=== PATIENT | female | born 1965 | race African-American/Black ===

== ENCOUNTER → 2018-02-05 | Outpatient (CLI) | payer BC ==
[2018-02-05 16:01] LABS: ADD MAN DIFF? NO
[2018-02-05 16:12] LABS: BASO % 1 % (0-3); EOS # 0.2 x10^3/uL (0.0-0.7); EOS % 3 % (0-3); HEMATOCRIT 43.4 % (36.0-47.0); HEMOGLOBIN 14.4 g/dL (12.0-15.5); LYMPH # 3.1 x10^3/uL (1.0-4.8); LYMPH % 48 % (24-48); MEAN CORPUSCULAR HEMOGLOBIN 30 pg (25-35); MEAN CORPUSCULAR HGB CONC 33 g/dL (31-37); MEAN CORPUSCULAR VOLUME 90 fL (79-100); MONO # 0.9 x10^3/uL (0.0-1.1); MONO % 14 % (0-9); NEUT # 2.2 x10^3uL (1.8-7.7); NEUT % 35 % (31-73); PLATELET COUNT 176 x10^3/uL (140-400); RED BLOOD COUNT 4.84 x10^6/uL (3.50-5.40); RED CELL DISTRIBUTION WIDTH 15.1 % (11.5-14.5); WHITE BLOOD COUNT 6.4 x10^3/uL (4.0-11.0)
[2018-02-05 16:34] LABS: ALBUMIN/GLOBULIN RATIO 1.1 (1.0-1.7); ALK PHOS 67 U/L (46-116); ALT (SGPT) 44 U/L (14-59); ANION GAP 5 (6-14); AST (SGOT) 20 U/L (15-37); BLOOD UREA NITROGEN 17 mg/dL (7-20); BUN/CREATININE RATIO 12 (6-20); CALCIUM 9.3 mg/dL (8.5-10.1); CARBON DIOXIDE 33 mmol/L (21-32); CHLORIDE 108 mmol/L (98-107); CREATININE 1.4 mg/dL (0.6-1.0); GFR 47.2; GLUCOSE 63 mg/dL (70-99); POTASSIUM 3.6 mmol/L (3.5-5.1); SODIUM 146 mmol/L (136-145); TOTAL BILIRUBIN 0.8 mg/dL (0.2-1.0); TOTAL PROTEIN 7.7 g/dL (6.4-8.2)
[2018-02-06 02:15] LABS: MRSA BY PCR Negative (Negative)
== END | disposition home or self-care (01) ==
LOC: SURGPAT 13:48
DX: Z01.812 Encounter for preprocedural laboratory examination (principal); M51.16 Intervertebral disc disorders with radiculopathy, lumbar region; M48.061 Spinal stenosis, lumbar region without neurogenic claudication; M43.16 Spondylolisthesis, lumbar region
CPT/HCPCS: 36415; 80053; 85025; 87641

== ENCOUNTER 2018-02-15 07:07 | Observation (INO) | payer BC ==
[~2018-02-15 07:07] MED LIST: LIDOCAINE 1% PF 2 ML VIAL. ID; MORPHINE SULFATE 4 MG/ML DISP.SYRIN. IV; ONDANSETRON PF 4 MG/2 ML VIAL. IV; PROCHLORPERAZINE 10 MG/2 ML VIAL. IV; fentaNYL PF VIAL 100 MCG/2 ML VIAL IV
[2018-02-15] MEDS: IV RINGERS,LACTATED 1000ML 1,000 ML IV ×2 (07:48→12:56)
[2018-02-15] MEDS ORDERED: PROPOFOL 50 ML IV ×2 (08:15→08:21)
[2018-02-15] MEDS ORDERED: REMIFENTANIL 2 MG VIAL. IV (08:16)
[2018-02-15] MEDS ORDERED: GLYCOPYRROLATE 1 MG/5 ML VIAL. (08:16)
[2018-02-15] MEDS ORDERED: ROCURONIUM 50 MG/5 ML VIAL. (08:16)
[2018-02-15] MEDS ORDERED: DEXAMETHASONE SOD PHOS 20 MG/5 ML VIAL. (08:20)
[2018-02-15] MEDS ORDERED: PROPOFOL 20 ML IV (08:20)
[2018-02-15] MEDS ORDERED: DESFLURANE > 120 MINUTES IH (08:20)
[2018-02-15] MEDS ORDERED: ONDANSETRON PF 4 MG/2 ML VIAL. (08:21)
[2018-02-15] MEDS ORDERED: PHENYLEPHRINE 10 MG/ML VIAL. (08:21)
[2018-02-15] MEDS ORDERED: MIDAZOLAM HCL/PF 2 MG/2 ML VIAL. (08:24)
[2018-02-15] MEDS ORDERED: KETOROLAC 30 MG/ML INJ FOR OR. INJ (09:03)
[2018-02-15] MEDS: THROMBIN TOPICAL 20,000 UNIT SPRAY.SYRN KIT TP (09:22)
[2018-02-15] MEDS: BUPIVAC MPF-EPI 0.5%-1:200000 30 ML VIAL. INJ (09:22)
[2018-02-15] MEDS: BACITRACIN 50,000 UNIT in IV NORMAL SALINE 1000ML BAG 1,000 ML IRR (09:22)
[2018-02-15] MEDS: GELATIN SPONGE SIZE 100. (09:22)
[2018-02-15] MEDS: KETOROLAC 60 MG/2 ML INJ FOR OR. (09:22)
[2018-02-15] MEDS ORDERED: fentaNYL PF VIAL 100 MCG/2 ML VIAL IV (11:30)
[2018-02-15] MEDS ORDERED: diphenhydrAMINE HCL 25 MG CAPSULE PO (11:45)
[2018-02-15] MEDS ORDERED: MAG HYDROX/ALUMINUM HYD/SIMETH 30 ML ORAL.SUSP PO (11:45)
[2018-02-15] MEDS ORDERED: 0.9 % SODIUM CHLORIDE 10 ML DISP.SYRIN. IV (11:45)
[2018-02-15] MEDS ORDERED: ZOLPIDEM 5 MG TABLET. PO (11:45)
[2018-02-15] MEDS ORDERED: ONDANSETRON PF 4 MG/2 ML VIAL. IV (11:45)
[2018-02-15] MEDS ORDERED: CALCIUM CARBONATE 500 MG TAB.CHEW PO (11:45)
[2018-02-15] MEDS ORDERED: diphenhydrAMINE 50 MG/ML VIAL IV (11:45)
[2018-02-15] MEDS ORDERED: MAGNESIUM HYDROXIDE 2,400 MG/30 ML ORAL.SUSP. PO (12:00)
[2018-02-15] MEDS ORDERED: ceFAZolin 2GM PREMIX 2 GM/50 ML BAG IV (12:00)
[2018-02-15] MEDS ORDERED: fentaNYL PF VIAL 100 MCG/2 ML VIAL ×2 (12:29→12:52)
[2018-02-15] MEDS: fentaNYL PF VIAL 100 MCG/2 ML VIAL IV ×4 (12:33→16:18)
[2018-02-15] MEDS: METHOCARBAMOL 750 MG TABLET PO ×2 (14:00→21:02)
[2018-02-15] MEDS ORDERED: ALBUTEROL SULFATE 2.5 MG/3 ML NEBU. NEB (14:15)
[2018-02-15] MEDS: ALBUTEROL SULFATE 2.5 MG/3 ML NEBU. NEB ×2 (14:55→20:00)
[2018-02-15] MEDS: oxyCODONE/APAP 10/325 1 TAB TABLET PO ×2 (19:32→23:41)
[2018-02-15] MEDS: DOCUSATE SODIUM 100 MG CAPSULE. PO (21:03)
[2018-02-16] MEDS: ALBUTEROL SULFATE 2.5 MG/3 ML NEBU. NEB ×5 (00:03→15:21)
[2018-02-16] MEDS: POTASSIUM CL 20MEQ D5-0.45NACL 1,000 ML IV ×2 (00:51→01:28)
[2018-02-16] MEDS: ACETAMINOPHEN 325 MG TABLET. PO ×2 (05:29→11:10)
[2018-02-16] MEDS: DOCUSATE SODIUM 100 MG CAPSULE. PO (08:17)
[2018-02-16] MEDS: CYANOCOBALAMIN (VITAMIN B-12) 1,000 MCG TABLET. PO (08:17)
[2018-02-16] MEDS: CHOLECALCIFEROL (VITAMIN D3) 1,000 UNIT TABLET PO (08:17)
[2018-02-16] MEDS: METHOCARBAMOL 750 MG TABLET PO ×2 (08:17→14:54)
[2018-02-16] MEDS: oxyCODONE/APAP 10/325 1 TAB TABLET PO ×2 (08:17→14:53)
[2018-02-16] MEDS: CETIRIZINE HCL 10 MG TABLET. PO (08:17)
== END 2018-02-16 20:30 | disposition home or self-care (01) ==
LOC: SURG 07:07 → 4 SOUTHEST 11:31 → 4 NORTH 02-16 16:09
DX: M48.062 Spinal stenosis, lumbar region with neurogenic claudication (principal); J45.909 Unspecified asthma, uncomplicated; M54.17 Radiculopathy, lumbosacral region; M43.17 Spondylolisthesis, lumbosacral region; M71.38 Other bursal cyst, other site; D64.9 Anemia, unspecified; Z85.9 Personal history of malignant neoplasm, unspecified; Z87.01 Personal history of pneumonia (recurrent); Z91.040 Latex allergy status; Z79.899 Other long term (current) drug therapy
CPT/HCPCS: 63047; 76000; 88304; 88311; 94640; 94760; 96374; 97110-GP; 97116-GP; 97162-GP; 97530-GP; A7015; G0378; G0379; G8978-CJ-GP; G8979-CI-GP; G8980-CI-GP; J0690; J1100; J1885; J2250; J2405; J2704; J3010; J3490; J7030; J7613

== ENCOUNTER → 2018-09-25 | Outpatient (CLI) | payer BC ==
[~2018-09-25] MED LIST changes: +CETI10TA22 PO; +CHOL100013 PO; +CHOL2000 PO; +CYAN250012 PO; +DIPH25CA58 PO; +DOCU-109 PO; +ERGO500027 PO; +HYDR-2761 PO; +IOHEXOL 180 MG/ML 10 ML VIAL. IT ONE; +IOHEXOL 180 MG/ML 10 ML VIAL. ONE; -LIDOCAINE 1% PF 2 ML VIAL. ID; +LIDOCAINE WITH 8.4% SOD BICARB 3 ML DISP.SYRIN. INJ ONE; +LIDOCAINE WITH 8.4% SOD BICARB 3 ML DISP.SYRIN. ONE; +LOSA1TAB19 PO; +METH750T2 PO; -MORPHINE SULFATE 4 MG/ML DISP.SYRIN. IV; -ONDANSETRON PF 4 MG/2 ML VIAL. IV; +OXYC1TAB15 PO; +OXYC1TAB22 PO; +OXYC5TAB4 PO; -PROCHLORPERAZINE 10 MG/2 ML VIAL. IV; +VENTOLIN HFA18 GM INH; -fentaNYL PF VIAL 100 MCG/2 ML VIAL IV
[2018-09-25 15:25] VITALS: BP 126/75
[2018-09-25 15:35] VITALS: BP 123/74
--- NOTE | 2018-09-25 15:41 | NUR ---
Pt completed myelogram recovery in cv obs. Alert and oriented x 3, able to tolerate PO, will wait for ride to take her home. Reviewed DC instructions, no questions, pt escorted out per wheelchair. KLAUS RN
--- NOTE | 2018-09-25 15:54 | RAD ---
Lumbar myelogram, 09/25/2018: History: Low back pain following laminectomy Under local anesthesia, aseptic conditions and fluoroscopic guidance a lumbar puncture was performed at the mid L2 level utilizing a 25-gauge Sarah spinal needle. Good clear CSF flow was obtained following which 14 cc of Omnipaque 180 was injected into the thecal sac. The spinal needle was then removed and hemostasis obtained. Appropriate digital imaging was then performed. 2.6 minutes of fluoroscopy time was utilized. 15 fluoroscopic spot images were recorded. The patient experienced a mild vasovagal reaction during the procedure but quickly recovered. She was sent to CT in good condition. Following findings are delineated on the myelogram: 1. There are mild anterior and posterior extradural defects at L3-4. There is mild associated narrowing of the AP diameter of the thecal sac at this level. There is slight anterolisthesis at L3-4 in the upright position with flexion, estimated at 2-3 mm. 2. There is minimal anterolisthesis at L5-S1, estimated at 3 mm. This does not change significantly with upright flexion or extension. 3. There is symmetric opacification of the nerve root sleeves in the lower lumbar spine. CT lumbar spine-post myelogram, 09/25/2018: Multidetector CT imaging was performed following a myelogram with multiplanar reconstructions produced. The following findings are delineated: 1. No significant posterior disc bulge or protrusion is seen at L1-2 and L2-3. The central spinal canal and neural foramina are well maintained. 2. At L3-4 there is mild to moderate broad-based posterior disc bulging, most prominent laterally on both sides. There are bilateral pars defects at L3. This appearance may be due to surgical resection of the inferior facet joints at L3-4. Posterior spurring on the left is causing mild narrowing of the left side of the thecal sac just inferior to the disc level. At the disc level in the supine position for the CT imaging the thecal sac measures 10-11 mm at the midline. There is no evidence of spondylolisthesis in the supine position for the CT imaging. There is only mild inferior foraminal narrowing. 3. At L4-5 there is a laminectomy defect on the left with evidence of a partial facetectomy. There is mild posterior disc bulging and minimal spurring. The central spinal canal is well maintained. There is mild bilateral foraminal narrowing 4. At L5-S1 there is moderate degenerative change involving the facet joints bilaterally. There is thinning of the pars interarticularis on the right with probable spondylolysis. There is minimal associated anterolisthesis of L5 on S1 in the supine position. The central spinal canal and neural foramina are well maintained. IMPRESSION: 1. Moderate facet joint arthropathy at L5-S1 with thinning and probable spondylolysis of the right pars interarticularis, with minimal associated anterolisthesis at L5-S1. 2. Previous left laminectomy at L4-5. 3. Bilateral pars defects at L3 in a pattern suggesting previous partial facet joint resections. Correlation with the precise surgical history is suggested. There is only slight anterolisthesis at L3-4 in the upright position with flexion. PQRS Compliance Statement: One or more of the following individualized dose reduction techniques were utilized for this examination: 1. Automated exposure control 2. Adjustment of the mA and/or kV according to patient size 3. Use of iterative reconstruction technique
== END | disposition home or self-care (01) ==
LOC: RAD 13:42
PROVIDERS: ATTEND Neurological Surgery
DX: M51.16 Intervertebral disc disorders with radiculopathy, lumbar region (principal); M48.061 Spinal stenosis, lumbar region without neurogenic claudication; J45.909 Unspecified asthma, uncomplicated; I10 Essential (primary) hypertension; Z91.040 Latex allergy status; Z98.890 Other specified postprocedural states
CPT/HCPCS: 62304; 72132; Q9965; 72265

== ENCOUNTER → 2019-01-07 | Outpatient (CLI) | payer BC ==
[2018-09-25 15:35] VITALS: BP 123/74
[~2019-01-07] MED LIST changes: -IOHEXOL 180 MG/ML 10 ML VIAL. IT ONE; -IOHEXOL 180 MG/ML 10 ML VIAL. ONE; -LIDOCAINE WITH 8.4% SOD BICARB 3 ML DISP.SYRIN. INJ ONE; -LIDOCAINE WITH 8.4% SOD BICARB 3 ML DISP.SYRIN. ONE
--- NOTE | 2019-01-07 14:01 | EKG ---
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
[2019-01-07 16:34] LABS: BASO # 0.1 x10^3/uL (0.0-0.2); BASO % 1 % (0-3); EOS # 0.1 x10^3/uL (0.0-0.7); EOS % 3 % (0-3); HEMATOCRIT 42.7 % (36.0-47.0); HEMOGLOBIN 14.1 g/dL (12.0-15.5); LYMPH % 56 % (24-48); MEAN CORPUSCULAR HEMOGLOBIN 29 pg (25-35); MEAN CORPUSCULAR HGB CONC 33 g/dL (31-37); MEAN CORPUSCULAR VOLUME 89 fL (79-100); MONO # 0.4 x10^3/uL (0.0-1.1); MONO % 7 % (0-9); NEUT # 1.8 x10^3uL (1.8-7.7); NEUT % 33 % (31-73); PLATELET COUNT 175 x10^3/uL (140-400); RED CELL DISTRIBUTION WIDTH 15.8 % (11.5-14.5); WHITE BLOOD COUNT 5.3 x10^3/uL (4.0-11.0)
[2019-01-07 16:46] LABS: ALBUMIN/GLOBULIN RATIO 1.1 (1.0-1.7); CALCIUM 9.5 mg/dL (8.5-10.1); CREATININE 1.4 mg/dL (0.6-1.0); GFR 47.2; POTASSIUM 3.4 mmol/L (3.5-5.1); PROTHROMBIN TIME PATIENT 13.2 SEC (11.7-14.0); TOTAL BILIRUBIN 0.8 mg/dL (0.2-1.0); TOTAL PROTEIN 7.5 g/dL (6.4-8.2)
== END | disposition home or self-care (01) ==
LOC: SURGPAT 13:28
PROVIDERS: ATTEND Neurological Surgery
DX: Z01.818 Encounter for other preprocedural examination (principal); M43.16 Spondylolisthesis, lumbar region; M54.5 Low back pain
CPT/HCPCS: 36415; 80053; 85025; 85610; 85730; 87641; 93005

== ENCOUNTER 2019-01-14 08:18 | Inpatient (IN) | payer BC ==
[2019-01-14] VITALS (7 sets, daily range): BP systolic 94–133; BP diastolic 52–76
[~2019-01-14] VITALS: Ht 160 cm; Wt 80.3 kg
--- NOTE | 2019-01-14 07:07 | PREOP HP ---
DATE OF SERVICE: 01/14/2019. HISTORY OF PRESENT ILLNESS: The patient is a pleasant 54-year-old who in 01/2018 underwent lumbar microsurgery at L3-L4 and L4-L5. Since her surgery, her left leg pain has been much improved. Her current problem, however, is low back pain. This has been present since her surgery. She rates her pain as 5/10. She says when she is up and moving and standing, her back pain increases. On occasion, there is pain, which can radiate into the right hip. Sitting helps her. Lying down also helps her. She has had physical therapy since surgery 2-3 times per week, has not been beneficial. PAST MEDICAL HISTORY: Anemia, asthma, cancer, headaches or migraines and hives. PAST SURGICAL HISTORY: Carpal tunnel release on the right in 1979, cervical surgery for HNP in 1989, pneumonia in 2008, CSF leak and repair in 2008, ankle surgery in 2013, lumbar decompression at L3-L4, L4-L5 in 01/2018. 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 Exercises weekly. Denies substance abuse. Denies drug use. Drinks alcohol 1-2 times per month. Drinks soda and tea daily. ALLERGIES: LATEX. CURRENT MEDICATIONS: Diazepam, Benadryl, ketorolac, cyanocobalamin, gabapentin, cetirizine, albuterol, Biofreeze. REVIEW OF SYSTEMS: A 12-point review of systems was obtained and is noncontributory except for that mentioned above. PHYSICAL EXAMINATION: NEUROSURGERY EXAMINATION: GENERAL APPEARANCE: Alert, pleasant, no acute distress. HEAD: Normocephalic and atraumatic. SKIN: Warm and dry. Well-healed lumbar incision. MUSCULOSKELETAL: Paraspinal muscle bulk is normal in the lumbar region. Restricted range of motion of the lumbar spine, mild to moderate tenderness of the lower lumbar spine with palpation, normal range of motion of the lower extremities bilaterally. EXTREMITIES: No clubbing, cyanosis, or edema. NEUROLOGIC: Alert and oriented x 3, normal recent and remote memory, strength 5/5 in bilateral lower extremities, sensory is intact to light touch in bilateral lower extremities, reflexes are present and symmetrical in the bilateral lower extremities, negative straight leg raising bilaterally, normal gait. IMAGING: On a lumbar myelogram from 09/25/2018, there is a 3 mm anterolisthesis at L3-L4 in flexion. On the CT portion, bilateral pars defects at L3 are seen. In the supine position on the CT scan post-myelogram, the spondylolisthesis reduces to 0. ASSESSMENT/ PLAN: The patient has moderately severe low back pain and motion at L3-L4 on the flexion when compared to the supine position. I believe that L3-L4 is the source of her persistent chronic back pain, which is disabling for her. She has given this problem some time and tried to improve with physical therapy, which has not been of any benefit. My feeling at this point is she should undergo an instrumented fusion at L3-L4 to see if this would help her. I did discuss this with her in detail including the technique, risks, and expected postoperative course. She understands. She would like to go ahead. We will make the arrangements. BRUCE THOMPSON MD DR: ADITHYA/aniyah JOB#: [id number] / [id number] BON
[~2019-01-14 08:18] MED LIST changes: +BACITRACIN 50,000 UNIT in IV NORMAL SALINE 1000ML BAG 1,000 ML IRR ONE; +BUPIVAC MPF-EPI 0.5%-1:200000 30 ML VIAL. ONE; +GELATIN SPONGE SIZE 100. ONE; +HYDROmorphone 2 MG/ML VIAL IV PRN; +IV RINGERS,LACTATED 1000ML 1,000 ML IV SCH; +KETOROLAC 60 MG/2 ML INJ FOR OR. ONE; +LIDOCAINE 1% PF 2 ML VIAL. ID PRN; +ONDANSETRON PF 4 MG/2 ML VIAL. IV PRN; -OXYC1TAB15 PO; +PROCHLORPERAZINE 10 MG/2 ML VIAL. IV PRN; +THROMBIN TOPICAL 20,000 UNIT SPRAY.SYRN KIT TP ONE; +fentaNYL PF VIAL 100 MCG/2 ML VIAL IV PRN
[2019-01-14] MEDS ORDERED: PROPOFOL 100 ML IV ONE (09:08)
[2019-01-14] MEDS ORDERED: ePHEDrine PF IN SALINE 50 MG/10 ML SYRINGE. IV ONE (10:01)
[2019-01-14] MEDS ORDERED: ONDANSETRON PF 4 MG/2 ML VIAL. ONE (10:01)
[2019-01-14] MEDS ORDERED: PHENYLEPHRINE in 0.9% NACL PF 1 MG/10 ML SYRINGE. IV ONE (10:01)
[2019-01-14] MEDS ORDERED: DEXAMETHASONE SOD PHOS 20 MG/5 ML VIAL. ONE (10:01)
[2019-01-14] MEDS ORDERED: PROPOFOL 20 ML IV ONE (10:02)
[2019-01-14] MEDS ORDERED: SUCCINYLCHOLINE 200 MG/10 ML VIAL. ONE (10:02)
[2019-01-14] MEDS ORDERED: LIDOCAINE 2% PF 5 ML VIAL. ONE (10:03)
[2019-01-14] MEDS ORDERED: ROCURONIUM 50 MG/5 ML VIAL. ONE (10:04)
[2019-01-14] MEDS ORDERED: MIDAZOLAM HCL/PF 2 MG/2 ML VIAL. ONE (10:05)
[2019-01-14] MEDS ORDERED: fentaNYL PF VIAL 100 MCG/2 ML VIAL ONE (10:05)
[2019-01-14] MEDS ORDERED: REMIFENTANIL 2 MG VIAL. IV ONE (10:05)
[2019-01-14] MEDS ORDERED: DESFLURANE > 120 MINUTES IH ONE (10:11)
--- NOTE | 2019-01-14 10:41 | RAD ---
CT of the lumbar spine without contrast, 01/14/2019: History: Brain lab study, spondylolisthesis Noncontrast scans were obtained with multiplanar reconstructions produced. The data was transferred to the operating room to aid in the patient's stereotactically guided surgery. The following findings are delineated: 1. No significant posterior disc bulge or protrusion is identified at the L1-2 and L2-3 levels. 2. At L3-4 there is moderate broad-based posterior disc bulging which is most prominent laterally on both sides. There are bilateral pars defects at L3 which may be related to previous surgery, as described on the 09/25/2018 CTmyelogram. There is mild associated central spinal stenosis and bilateral foraminal narrowing. 3. At L4-5 there is a laminectomy defect on the left with evidence of a partial facetectomy. There is mild posterior disc bulging, more so on the left. There is mild posterior marginal spurring. The combination of findings is causing mild bilateral foraminal narrowing and borderline central spinal stenosis. 4. At L5-S1 there are degenerative changes involving the facet joints. There is thinning of the pars interarticularis on the right with probable spondylolysis. There is minimal anterolisthesis of L5 on S1, unchanged since the 09/25/2018 exam. PQRS Compliance Statement: One or more of the following individualized dose reduction techniques were utilized for this examination: 1. Automated exposure control 2. Adjustment of the mA and/or kV according to patient size 3. Use of iterative reconstruction technique
[2019-01-14] MEDS ORDERED: GLYCOPYRROLATE 1 MG/5 ML VIAL. ONE (13:29)
[2019-01-14] MEDS ORDERED: NEOSTIGMINE METHYLSULFATE 5 MG/5 ML SYRINGE. ONE (13:29)
[2019-01-14] MEDS ORDERED: REMIFENTANIL 1 MG VIAL. IV ONE (14:38)
[2019-01-14] MEDS ORDERED: FAMOTIDINE 20 MG/2 ML VIAL ONE (14:53)
[2019-01-14] MEDS ORDERED: NALOXONE 0.4 MG/ML VIAL. ONE (15:39)
[2019-01-14] MEDS ORDERED: fentaNYL PF VIAL 100 MCG/2 ML VIAL IV PRN (16:00)
[2019-01-14] MEDS ORDERED: ONDANSETRON PF 4 MG/2 ML VIAL. IV PRN (16:00)
[2019-01-14] MEDS ORDERED: diphenhydrAMINE HCL 25 MG CAPSULE PO PRN (16:00)
[2019-01-14] MEDS ORDERED: 0.9 % SODIUM CHLORIDE 10 ML DISP.SYRIN. IV PRN (16:00)
[2019-01-14] MEDS ORDERED: METHOCARBAMOL 750 MG TABLET PO PRN (16:00)
[2019-01-14] MEDS ORDERED: CALCIUM CARBONATE 500 MG TAB.CHEW PO PRN (16:00)
[2019-01-14] MEDS ORDERED: MAG HYDROX/ALUMINUM HYD/SIMETH 30 ML ORAL.SUSP PO PRN (16:00)
[2019-01-14] MEDS ORDERED: NON FORMULARY ITEM (Albuterol Sulfate (Ventolin Hfa Inhaler) 2 PUFF) INH SCH (16:00)
[2019-01-14] MEDS ORDERED: CETIRIZINE HCL 10 MG TABLET. PO PRN (16:00)
[2019-01-14] MEDS ORDERED: MAGNESIUM HYDROXIDE 2,400 MG/30 ML ORAL.SUSP. PO PRN (16:00)
[2019-01-14] MEDS ORDERED: ZOLPIDEM 5 MG TABLET. PO PRN (16:00)
[2019-01-14] MEDS ORDERED: NALOXONE 0.4 MG/ML VIAL. IV PRN (16:00)
[2019-01-14] MEDS ORDERED: oxyCODONE/APAP 5/325 1 TAB TABLET PO PRN (16:00)
[2019-01-14] MEDS ORDERED: ACETAMINOPHEN 325 MG TABLET. PO PRN (16:00)
[2019-01-14] MEDS: fentaNYL PF VIAL 100 MCG/2 ML VIAL IV PRN ×2 (16:04→16:16)
[2019-01-14] MEDS: MORPHINE SULFATE 2 MG/ML VIAL. IV PRN ×2 (16:20→16:30)
--- NOTE | 2019-01-14 17:10 | NUR ---
Admitted from PACU per bed, alert to name, drowsy falls to sleep immediately, lumbar dressing with shadowing noted on 2 of 3 dressings, states discomfort level 10/10, ice pack applied to lumbar area for comfort, bilateral KEKE hose & bilateral MARYANA in place, IVF infusing into right hand, RAC iv site flushed, family members at bedside, side rails up x3, call light within reach, bed alarm activated.
[2019-01-14] MEDS ORDERED: POTASSIUM CL 20MEQ D5-0.45NACL 1,000 ML IV SCH (18:00)
[2019-01-14] MEDS ORDERED: ALBUTEROL SULFATE 2.5 MG/3 ML NEBU. NEB SCH (20:00)
[2019-01-14] MEDS: DOCUSATE SODIUM 100 MG CAPSULE. PO SCH (20:35)
[2019-01-14] MEDS: ceFAZolin SODIUM IV Push 1 GM VIAL. IVP SCH (20:37)
[2019-01-14] MEDS: oxyCODONE/APAP 5/325 1 TAB TABLET PO PRN (20:40)
[2019-01-14] MEDS ORDERED: ceFAZolin SODIUM 1 GM in IV DEXTROSE 5% 50 ML IV SCH (22:00)
[2019-01-14] MEDS ORDERED: ALBUTEROL SULFATE 2.5 MG/3 ML NEBU. NEB PRN (22:45)
[2019-01-15] MEDS: oxyCODONE/APAP 5/325 1 TAB TABLET PO PRN ×2 (03:01→17:41)
[2019-01-15 03:03] VITALS: BP 134/71
[2019-01-15] MEDS: ceFAZolin SODIUM IV Push 1 GM VIAL. IVP SCH ×2 (05:12→11:59)
[2019-01-15 06:10] VITALS: BP 113/74
[2019-01-15] MEDS ORDERED: hydroCHLOROthiazide 12.5 MG CAPSULE PO SCH (09:00)
[2019-01-15] MEDS ORDERED: LOSARTAN POTASSIUM 50 MG TABLET. PO SCH (09:00)
[2019-01-15] MEDS ORDERED: CYANOCOBALAMIN (VITAMIN B-12) 1,000 MCG TABLET. PO SCH (09:00)
[2019-01-15 11:10] VITALS: BP 116/70
[2019-01-15] MEDS ORDERED: OXYC1TAB15 PO (13:05)
[2019-01-15] MEDS ORDERED: METH750T2 PO (13:05)
[2019-01-15] MEDS ORDERED: DOCU-109 PO (13:05)
--- NOTE | 2019-01-15 13:11 | DISCH ---
DISCHARGE INSTRUCTIONS Condition on Discharge Condition on Discharge: Stable Activity After Discharge Activity Instructions for Disc: Activity as tolerated, Avoid exertion Bathing Instructions: Shower-keep dressing dry Lifting Instructions after Dis: No pulling or pushing, Do not lift >10 pounds Exercise Instruction after Dis: Exercise per therapy, Progress as tolerated Driving Instructions after Dis: Do not drive, No driving for 2 weeks Weight Bearing Status after Di: As tolerated Diet after Discharge Diet after Discharge: Regular Additional Diet Restrictions: resume home diet Wound Incision Care Wound/Incision Care: Ice to area for comfort, May get incision wet Other wound/incision instructi: may remove dressing when dry then may shower, no soaking Contacting the DRJd after DC Call your doctor for: Concerns you may have Follow-Up Follow up with: Dr. Thompson's nurse in 2 weeks [phone] BRUCE THOMPSON MD Jan 15, 2019 13:11
[2019-01-15] MEDS: DOCUSATE SODIUM 100 MG CAPSULE. PO SCH (14:08)
[2019-01-15 15:02] VITALS: BP 107/58
[2019-01-15 18:17] VITALS: BP 110/60
--- NOTE | 2019-01-15 18:35 | NUR ---
Discharge instructions given with prescriptions. Answered questions and concerns. Verbalized understanding. Extra dressing supplies given. Waiting for ride home. Cont. monitor.
--- NOTE | 2019-01-15 19:46 | NUR ---
Discharged from hospital. Escorted by this RN via w/c. Wearing brace, ambulating slowly bur steadily. Discharge papers given by FRANCOISE Womack.
--- NOTE | 2019-01-16 18:06 | PATHOLOGY ---
[facility] Accession Number: [id number] . 01 Material submitted: . vertebral column - LUMBAR DECOMPRESSION . 01 Clinical history: . Low back pain, lumbar spondylolisthesis . 02 Diagnosis: Segments of fibrocartilaginous, adipose, and skeletal muscle tissue and minute segment of bone, lumbar decompression: - Focal degenerative changes of fibrocartilaginous tissue. 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 02 Comment: There is no evidence of an acute inflammatory process or malignancy. 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 02 Electronically signed: . Konrad Metzger MD, Pathologist NPI- [id number] . 01 Gross description: . The specimen is received in formalin, labeled "Harness, Radhika, lumbar decompression was "and consists of multiple fragments of yellow-delaney soft to rubbery tissue and bone measuring 2.5 x 2.5 x 0.5 cm in aggregate which are entirely submitted in A1 following decalcification. (SDY; 01/15/2019) SYU/SYU . 02 Pathologist provided ICD-10: M54.9, M43.16 . 02 CPT . 312177, 226016 Specimen Comment: A courtesy copy of this report has been sent to Specimen Comment: [phone], . Specimen Comment: Report sent to / DR MEDINA Specimen Comment: A duplicate report has been generated due to demographic updates. Performed at: 01 [facility] [address], [place], [place] [id number] MD Raul Collazo MD Phone: [phone] Performed at: 02 [facility] [address] [place], [place] [id number] MD Konrad Metzger MD Phone: [phone]
--- NOTE | 2019-01-18 20:16 | OP ---
DATE OF SURGERY: 01/14/2019 PREOPERATIVE DIAGNOSIS: Spondylolisthesis with motion, L3-L4. POSTOPERATIVE DIAGNOSIS: Spondylolisthesis with motion, L3-L4. OPERATION PERFORMED: Posterior instrumentation L3-L4, posterolateral fusion L3-L4 with autograft bone. The operation was done with EMG monitoring, SSEP monitoring, motor evoked potentials, fluoroscopy, microscopic dissection and BrainLAB guidance. SURGEON: Ugo Thompson M.D. PROGRAM DIRECTOR SCOUTING: Marva Robledo APRN. She assisted with the exposure, the placement of the pedicle screws. OPERATIVE INDICATIONS: The patient is a pleasant 53-year-old woman who last year underwent a laminectomy of L3-L4 and L4-L5. She developed problems with chronic back pain, which became more and more severe. On imaging studies, there was motion seen at L3-L4, which was 3 mm when she was standing and reduced to 0 when she was supine and I felt that this was the source of the pain she was experiencing. She was also noted to have bilateral pars defects at L3. I recommended instrumented fusion. I spoke with her about the surgery and risks. She understood and wished to go ahead. DESCRIPTION OF PROCEDURE: Following general endotracheal anesthesia, the patient was positioned prone on the Iain table. Lumbar region prepped and draped in standard fashion. KEKE hose and AV impulse boots were applied for DVT prophylaxis. Microscope was draped. Fluoroscopy was draped and brought into the field. Monitoring was established. Ancef 2 gram was given less than 1 hour prior to initiation of the surgery. Iliac posts were placed into the left iliac crest and the BrainLAB system was initialized. A midline incision was then made from L3-L4, dissected down through skin and subcutaneous tissue and I first reflected the paraspinal muscles to the left. I identified the pedicle and also the lateral pedicle and transverse processes of L3 and L4. I drilled into the posterior aspect of the pedicles of L3 and L4 and I passed a black ball followed by ball tip probe, followed by tap, followed by screw placement, all using stimulated EMG monitoring. During this time, I also aspirated 20 mL of bone marrow from the right iliac crest and I mixed this with allograft bone, which was then packed into the left lateral gutter as after I excoriated. I then moved to the right side in a similar fashion, drilled into the posterior aspect of the pedicles of L3 and L4. I placed pedicle screws in L3 and L4 and during this time excoriated the lateral facets and transverse processes and packed allograft bone into the right lateral gutter. The rods were placed, nuts were applied and the system was torqued. I then irrigated copiously with antibiotic solution. Films looked excellent. I closed the wound in layers with absorbable suture with frequent irrigation and I closed the skin with a 4-0 subcuticular stitch. The operation went very well. The patient then awakened uneventfully and taken to recovery room in normal strength in her lower extremities. I was quite pleased with the surgery. UGO THOMPSON MD DR: ADITHYA/aniyah JOB#: [id number] / [id number] BON
--- NOTE | 2019-01-23 20:49 | DS ---
DATE OF DISCHARGE: 01/15/2019 DISCHARGE DIAGNOSES: Spondylolisthesis with motion, L3-L4. OPERATION PERFORMED: Posterior instrumentation L3-L4, posterolateral fusion L3-L4 with autograft bone and allograft bone. HISTORY OF PRESENT ILLNESS: The patient is a pleasant 54-year-old woman who last year underwent laminectomy at L3-L4 and L4-L5. She developed problems with chronic back pain, which became more and more severe. On imaging studies, there was motion seen at L3-L4 which was 3 mm when she was standing and reduced to 0 when she was supine. She also had a bilateral pars defect at L3. I recommended instrumented fusion. She understood the surgery and the risks, she wished to go ahead. HOSPITAL COURSE: She was admitted to the floor postoperatively where she did well. She was up ambulating in the room and in the halls. Physical therapy was initiated and instruction was given to her regarding her activities. Her pain is well controlled and she is in good condition to discharge home. DISCHARGE MEDICATIONS: She will resume her medications per the MRAD. DISCHARGE INSTRUCTIONS: She was instructed regarding incision care, activity restrictions and expectations for the next several weeks. She will follow up in the office in 2 weeks. She understands to call with any questions or concerns. BRUCE THOMPSON MD DR: LUCIEN/aniyah JOB#: [id number] / [id number]
== END 2019-01-15 19:45 | disposition home or self-care (01) | DRG 460 ==
LOC: OPSVCIP 08:18 → 4 SOUTHEST 17:10
PROVIDERS: ADMIT Neurological Surgery; ATTEND Neurological Surgery
PROC: 4A11X4G Monitoring of Peripheral Nervous Electrical Activity, Intraoperative, External Approach (ICD-10-PCS; 2019-01-14)
PROC: 07DR3ZZ Extraction of Iliac Bone Marrow, Percutaneous Approach (ICD-10-PCS; 2019-01-14)
PROC: 0SG0071 Fusion of Lumbar Vertebral Joint with Autologous Tissue Substitute, Posterior Approach, Posterior Column, Open Approach (ICD-10-PCS; principal; 2019-01-14 10:30)
DX: M43.16 Spondylolisthesis, lumbar region (principal); J45.909 Unspecified asthma, uncomplicated; G89.29 Other chronic pain; G43.909 Migraine, unspecified, not intractable, without status migrainosus; Z91.040 Latex allergy status; Z79.899 Other long term (current) drug therapy
CPT/HCPCS: 36415; 72131; 76000; 86850; 86900; 86901; 88304; 88311; 94640; A4314; A7015; C1713; J0171; J0330; J0690; J0696; J0780; J1100; J1170; J1885; J2001; J2250; J2270; J2310; J2370; J2405; J2704; J2710; J3010; J3490; J7030; J7120; J7613; 97110; 97116; 97530

== ENCOUNTER → 2019-04-03 | Outpatient (CLI) | payer BC ==
[~2019-04-03] MED LIST changes: -BACITRACIN 50,000 UNIT in IV NORMAL SALINE 1000ML BAG 1,000 ML IRR ONE; -BUPIVAC MPF-EPI 0.5%-1:200000 30 ML VIAL. ONE; -GELATIN SPONGE SIZE 100. ONE; -HYDROmorphone 2 MG/ML VIAL IV PRN; -IV RINGERS,LACTATED 1000ML 1,000 ML IV SCH; -KETOROLAC 60 MG/2 ML INJ FOR OR. ONE; -LIDOCAINE 1% PF 2 ML VIAL. ID PRN; -ONDANSETRON PF 4 MG/2 ML VIAL. IV PRN; +OXYC1TAB15 PO; -PROCHLORPERAZINE 10 MG/2 ML VIAL. IV PRN; -THROMBIN TOPICAL 20,000 UNIT SPRAY.SYRN KIT TP ONE; -fentaNYL PF VIAL 100 MCG/2 ML VIAL IV PRN
--- NOTE | 2019-04-03 11:21 | RAD ---
Indication: Status post lumbar fusion TECHNIQUE: 2 views of the lumbar spine COMPARISON: None FINDINGS: There are 5 lumbar type vertebral bodies. Status post posterior fusion at L3-L4 with grade 1 anterolisthesis of L3 over L4. No compression deformities. No significant evidence of degenerative disc disease. SI joints within normal limits. IMPRESSION: Status post posterior fusion at L3-L4 with grade 1 anterolisthesis of L3 over L4. Electronically signed by: Srikanth Hamm DO (04/03/2019 11:18 AM) [facility]
== END | disposition home or self-care (01) ==
LOC: RAD 10:16
PROVIDERS: ATTEND Neurological Surgery
DX: M43.16 Spondylolisthesis, lumbar region (principal); Z98.1 Arthrodesis status
CPT/HCPCS: 72100

== ENCOUNTER → 2019-07-09 | Outpatient (CLI) | payer BC ==
--- NOTE | 2019-07-09 15:26 | KCIC ---
EXAM: Lumbar spine CT without contrast. HISTORY: Pain. TECHNIQUE: Computed tomographic images of the lumbar spine were obtained without contrast. Multiplanar reformatting was performed.. *One or more of the following individualized dose reduction techniques were utilized for this examination: 1. Automated exposure control. 2. Adjustment of the mA and/or kV according to patient size. 3. Use of iterative reconstruction technique. COMPARISON: 01/14/2019 FINDINGS: There is instrumented posterior spinal fusion and partial laminectomy decompression at L3-L4. The instrumentation is in expected position. There is grade 1 anterolisthesis this level, measuring 5 mm. There is also grade 1 anterolisthesis of L5 on S1, measuring 5 mm and grade 1 anterolisthesis of L4 and L5, measuring 2 mm. There is a right pars interarticularis defect at L5-S1. There is mild lumbar scoliosis. There is no suspicious lytic sclerotic osseous lesion. There is a minimal endplate remodeling at multiple levels. At L1-L2, there is minimal bilateral facet arthropathy. There is no stenosis. At L2-L3, there is a mild disc bulge. There is mild bilateral facet arthropathy. There is no stenosis. At L3-L4, there is a mild disc bulge. There is instrumented fusion with partial laminectomy decompression. There is grade 1 anterolisthesis. There is mild bilateral foraminal stenosis. There is mild central canal stenosis. At L4-L5, there is a suspected broad-based left foraminal to extra foraminal disc protrusion superimposed on a disc bulge and endplate remodeling. There is moderate right facet arthropathy. There is mild left and minimal right foraminal stenosis. At L5-S1, there is a mild disc bulge. There is grade 1 anterolisthesis with a right pars defect. There is mild right and moderate left facet arthropathy. There is mild left foraminal stenosis. IMPRESSION: 1. Instrumented fusion at L4-L5. 2. Degenerative change throughout the lumbar spine, described in detail above. This is associated with mild bilateral foraminal and central canal stenosis at L3-L4, minimal right and mild left foraminal stenosis at L4-L5 and mild left foraminal stenosis at L5-S1. 3. Grade 1 anterolisthesis with associated right pars defect at L5-S1. There is also grade 1 anterolisthesis of L3 on L4 and L4 and L5. Electronically signed by: Klaudia Ambrocio MD (07/09/2019 3:23 PM) [place] [id number]
== END | disposition home or self-care (01) ==
LOC: KCIC CT 11:01
PROVIDERS: ATTEND Neurological Surgery
DX: M47.816 Spondylosis without myelopathy or radiculopathy, lumbar region (principal); M48.07 Spinal stenosis, lumbosacral region; M43.17 Spondylolisthesis, lumbosacral region; M41.86 Other forms of scoliosis, lumbar region; M46.86 Other specified inflammatory spondylopathies, lumbar region; M51.27 Other intervertebral disc displacement, lumbosacral region; Z98.1 Arthrodesis status
CPT/HCPCS: 72131

== ENCOUNTER → 2019-08-02 | Outpatient (CLI) | payer BC ==
[~2019-08-02] MED LIST changes: +CETI10TA16 PO; +CYCL5TAB PO; +GADOTERATE 7.5 MMOL/15ML VIAL. IVP ONE
--- NOTE | 2019-08-02 16:40 | KCIC ---
MRI Lumbar Spine without contrast History: Chronic low back pain with previous surgeries Technique: Multiplanar, multi sequential noncontrast MR imaging was performed of the lumbar spine. Comparison: 07/09/2019 CT exam lumbar spine Findings: There is again posterolateral fusion hardware with bilateral pedicle screws at what is considered L3-4. There is again grade 1 anterior spondylolisthesis at L3-4 and L5-S1, negligible anterior spondylolisthesis L4-5. Conus terminates at L1-L2. There is again mild to moderate L5-S1 degenerative disc disease and minimally L3-4 and L4-5. There is no significant marrow edema. L1-L2: Spinal canal and neural foramina are adequate. L2-L3: Spinal canal and neural foramina are adequate L3-L4: There are again laminectomy defects. There is mild partial uncovering of the posterior aspect of the disc due to spondylolisthesis. Spinal canal is overall adequate. There is again minimal narrowing on the right neural foramen in part from facet, left neural foramen overall adequate. L4-L5: There is again left laminectomy defect. Spinal canal is adequate. There is facet degenerative change. There is very mild narrowing of the inferior left neural foramen by disc osteophyte complex. Right neural foramen is overall adequate. L5-S1: There is facet hypertrophic change greater on the left. Spinal canal and neural foramina are adequate. There is right L5 spondylolysis better seen on CT. Impression: 1. There is again posterolateral fusion hardware at what is considered L3-4. There is mild grade 1 anterior spondylolisthesis L3-4, L4-5 and L5-S1. 2. There is no significant lumbar spinal stenosis. There is very mild neural foramina compromise as stated on the right at L3-4 and on the left at L4-5. 3. There is [id number] degenerative disc disease at L5-S1, minimally L3-4 and L4-5. Electronically signed by: Balwinder Reveles MD (08/02/2019 4:38 PM) [id number]
--- NOTE | 2019-08-02 18:22 | KCIC ---
Examination: LUMBAR SPINE FLEX/EXTI ONLY History: Chronic back pain Comparison/Correlation: 07/09/2019 CT lumbar spine without contrast, 04/03/2019 lumbar spine 2 view exam Findings: Flexion and extension imaging of the lumbar spine was performed. Posterior lumbar spine fusion at the L3-4 level is present. Minimal anterolisthesis of L3 on L4 and L4 over L5 is noted on flexion and extension imaging without significant difference. Mild anterolisthesis of L5 in relation to S1 of less than grade 1 extent is similar on flexion and extension imaging. This space narrowing at L3-4 is mild. Moderate L4-5 disc space narrowing is present. Vertebral body heights are adequate. No fracture or bone destruction. Impression: Anterolisthesis at L3-4, L4-5, and L5-S1. Anterolisthesis is slightly less on flexion imaging at L5-S1. Electronically signed by: Masoud Gamboa MD (08/02/2019 6:19 PM) [facility]
== END | disposition home or self-care (01) ==
LOC: KCIC MRI 12:50
PROVIDERS: ATTEND Neurological Surgery
DX: S32.00 Fracture of unspecified lumbar vertebra (principal); M43.16 Spondylolisthesis, lumbar region; M51.16 Intervertebral disc disorders with radiculopathy, lumbar region; M53.3 Sacrococcygeal disorders, not elsewhere classified; M47.26 Other spondylosis with radiculopathy, lumbar region; M47.818 Spondylosis without myelopathy or radiculopathy, sacral and sacrococcygeal region; M89.38 Hypertrophy of bone, other site; M48.061 Spinal stenosis, lumbar region without neurogenic claudication; M25.78 Osteophyte, vertebrae; Z98.1 Arthrodesis status; X58.XXXD Exposure to other specified factors, subsequent encounter
CPT/HCPCS: 72100; 72158; A9575

== ENCOUNTER → 2019-08-26 | Outpatient (CLI) | payer BC ==
[~2019-08-26] MED LIST changes: -GADOTERATE 7.5 MMOL/15ML VIAL. IVP ONE
[2019-08-26 15:31] LABS: BASO # 0.1 x10^3/uL (0.0-0.2); BASO % 1 % (0-3); EOS # 0.2 x10^3/uL (0.0-0.7); EOS % 3 % (0-3); HEMATOCRIT 43.8 % (36.0-47.0); HEMOGLOBIN 14.6 g/dL (12.0-15.5); LYMPH # 2.6 x10^3/uL (1.0-4.8); LYMPH % 35 % (24-48); MEAN CORPUSCULAR HEMOGLOBIN 30 pg (25-35); MEAN CORPUSCULAR HGB CONC 33 g/dL (31-37); MEAN CORPUSCULAR VOLUME 89 fL (79-100); MONO # 0.7 x10^3/uL (0.0-1.1); MONO % 10 % (0-9); NEUT # 3.7 x10^3/uL (1.8-7.7); NEUT % 51 % (31-73); PLATELET COUNT 181 x10^3/uL (140-400); RED BLOOD COUNT 4.93 x10^6/uL (3.50-5.40); RED CELL DISTRIBUTION WIDTH 15.3 % (11.5-14.5); WHITE BLOOD COUNT 7.2 x10^3/uL (4.0-11.0)
[2019-08-26 15:42] LABS: PROTHROMBIN TIME PATIENT 12.8 SEC (11.7-14.0)
[2019-08-26 16:19] LABS: ALBUMIN 3.7 g/dL (3.4-5.0); ALBUMIN/GLOBULIN RATIO 0.9 (1.0-1.7); CALCIUM 9.3 mg/dL (8.5-10.1); CREATININE 1.5 mg/dL (0.6-1.0); GFR 43.5; POTASSIUM 3.6 mmol/L (3.5-5.1); TOTAL BILIRUBIN 0.6 mg/dL (0.2-1.0); TOTAL PROTEIN 7.9 g/dL (6.4-8.2)
== END | disposition home or self-care (01) ==
LOC: SURGPAT 14:48
PROVIDERS: ATTEND Neurological Surgery
DX: Z01.818 Encounter for other preprocedural examination (principal); M54.5 Low back pain; M43.10 Spondylolisthesis, site unspecified
CPT/HCPCS: 36415; 80053; 85025; 85610; 85730; 87641

== ENCOUNTER 2019-09-02 06:12 | Inpatient (IN) | payer BC ==
--- NOTE | 2019-08-30 13:37 | HP ---
ADMIT DATE: DICTATED BY: Alejandro Will RN DATE OF SURGERY: 09/02/2019. HISTORY OF PRESENT ILLNESS: The patient is a pleasant 54-year-old who complains of lower back and groin pain as well as pain in her buttocks, posterior lateral thighs and legs. She has had a previous fusion with me. At this point, we are discussing augmenting her fusion with re-instrumentation. She has always had a small spondylolisthesis at L4-L5 and L5-S1, but there were never motion of those levels. On flexion and extension films done prior to her last visit in the office, she was moving significantly at L5-S1 on flexion and extension images. This was not the case prior to her previous surgery. She is noticing increasing lower back pain along with pain, which can radiate into both inguinal regions in her buttocks and posterior lateral thighs and legs. Most of the pain is in her back and hips. Twisting increases her pain and increasing activities increase her pain. Sitting helps her to a degree, although if she sits for any length of time, her back does become stiff and sore. PAST MEDICAL HISTORY: Anemia, asthma, cancer, headaches or migraines, hives. PAST SURGICAL HISTORY: CTR, right in 1979; HNP cervical surgery in 1989; pneumonia in 2008; CSF leak with repair in 2008; ankle surgery in 2013; lumbar decompression L3-L4, L4-L5 in 01/2018; lumbar fusion L3-L4 in 12/2018. FAMILY HISTORY: None documented. 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 Exercises weekly. Denies substance abuse. Denies tobacco use. Drinks alcohol 1-2 times per month. Drinks soda and tea daily. ALLERGIES: TO LATEX. CURRENT MEDICATIONS: Cyclobenzaprine, Benadryl, ketorolac, cyanocobalamin, gabapentin, cetirizine, albuterol, Biofreeze, Flexeril, Percocet. REVIEW OF SYSTEMS: A 12-point review of systems was obtained and is noncontributory except for that mentioned above. PHYSICAL EXAMINATION: NEUROSURGERY EXAMINATION: GENERAL APPEARANCE: Alert, pleasant, in no acute distress. HEAD: Normocephalic and atraumatic. SKIN: Warm and dry, well-healed lumbar incision. MUSCULOSKELETAL: Lumbar paraspinal muscle bulk is normal, restricted range of motion of the lumbar spine, market tenderness of the lower lumbar spine with palpation, normal range of motion of the lower extremities bilaterally. EXTREMITIES: No clubbing, cyanosis or edema. NEUROLOGIC: Alert and oriented x 3, normal recent and remote memory, strength 5/5 in bilateral lower extremities, sensory was intact to light touch in the lower extremities bilaterally, reflexes are present and symmetric in bilateral lower extremities, negative straight leg raising bilaterally, normal gait. IMAGING: Reviewed. I reviewed a lumbar flexion and extension images which are described above. On these, there is significant motion at L5-S1. On her previous images, there is a clear nonunion seen at L3-L4. ASSESSMENT: 1. 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 2. Low back pain. 3. Spondylolisthesis, lumbosacral region. 4. Spondylolisthesis, lumbar region. PLAN: She will require removal of hardware at L3-L4 as well as posterior instrumentation L3 through sacrum. This will be combined with posterolateral fusion. I did discuss this with her including the risks and expected postoperative course. She understands. She would like to go ahead. We will make the arrangements. BRUCE THOMPSON MD DR: ADITHYA/aniyah JOB#: [id number] / [id number]
[2019-09-02] VITALS (8 sets, daily range): BP systolic 77–103; BP diastolic 33–60
[~2019-09-02] VITALS: Ht 160 cm; Wt 87.5 kg
[~2019-09-02 06:12] MED LIST changes: +BACITRACIN 50,000 UNIT in IV NORMAL SALINE 1000ML BAG 1,000 ML IRR ONE
[2019-09-02] MEDS ORDERED: MORPHINE SULFATE 2 MG/ML VIAL. IV PRN (07:00)
[2019-09-02] MEDS ORDERED: PROCHLORPERAZINE 10 MG/2 ML VIAL. IV PRN (07:00)
[2019-09-02] MEDS ORDERED: fentaNYL PF VIAL 100 MCG/2 ML VIAL IV PRN ×2 (07:00)
[2019-09-02] MEDS ORDERED: ONDANSETRON PF 4 MG/2 ML VIAL. IV PRN (07:00)
[2019-09-02] MEDS ORDERED: HYDROmorphone 2 MG/ML VIAL IV PRN (07:00)
[2019-09-02] MEDS ORDERED: IV RINGERS,LACTATED 1000ML 1,000 ML IV SCH (07:00)
[2019-09-02] MEDS ORDERED: LIDOCAINE 1% PF 2 ML VIAL. ID PRN (07:00)
[2019-09-02] MEDS ORDERED: KETOROLAC 60 MG/2 ML VIAL. ONE (07:18)
[2019-09-02] MEDS ORDERED: GELATIN SPONGE SIZE 100. ONE (07:18)
[2019-09-02] MEDS ORDERED: THROMBIN TOPICAL 20,000 UNIT SPRAY.SYRN KIT TP ONE (07:18)
[2019-09-02] MEDS ORDERED: PROPOFOL 100 ML IV ONE (07:55)
[2019-09-02] MEDS ORDERED: BUPIVACAINE-EPI 0.5%-1:200000 MPF 30 ML VIAL. INJ ONE (08:00)
[2019-09-02] MEDS ORDERED: REMIFENTANIL 2 MG VIAL. IV ONE (08:06)
[2019-09-02] MEDS ORDERED: DESFLURANE > 120 MINUTES IH ONE (08:06)
[2019-09-02] MEDS ORDERED: MIDAZOLAM HCL/PF 2 MG/2 ML VIAL. ONE (08:06)
[2019-09-02] MEDS ORDERED: fentaNYL PF VIAL 100 MCG/2 ML VIAL ONE (08:06)
[2019-09-02] MEDS ORDERED: ONDANSETRON PF 4 MG/2 ML VIAL. ONE (08:07)
[2019-09-02] MEDS ORDERED: DEXAMETHASONE SOD PHOS 20 MG/5 ML VIAL. ONE (08:07)
[2019-09-02] MEDS ORDERED: ROCURONIUM 50 MG/5 ML VIAL. ONE (08:07)
[2019-09-02] MEDS ORDERED: PHENYLEPHRINE 10 MG/ML VIAL. ONE ×2 (08:07→12:33)
[2019-09-02] MEDS ORDERED: GLYCOPYRROLATE 1 MG/5 ML VIAL. ONE (10:18)
--- NOTE | 2019-09-02 10:35 | RAD ---
CT study of the lumbar spine without contrast Clinical indications: Low back pain. COMPARISON: CT study lumbar spine dated July 09, 2019 and MRI study lumbar spine dated August 02, 2019. TECHNIQUE: Noncontrast helical CT scanning of the lumbar spine was performed. Multiplanar 2-D reconstructions were generated. PQRS compliance Statement One or more of the following individualized dose reduction techniques were utilized for this study: 1. Automated exposure control 2. Adjustment of the mA and/or kV according to patient size 3. Use of iterative reconstruction technique FINDINGS: There is a grade 1 anterolisthesis of L3-4. Bilateral transpedicular screws are seen at L3 and L4 connected by 2 vertical metallic stabilizer bars. Alignment is stable. Position of surgical hardware is stable. No lytic process or lucency or discitis is seen. Bilateral pars defects are seen. This is unchanged. There is little overall floor of the thickness of L5. Grade 1 anterolisthesis of L5-S1 is seen. This is stable. No compression fracture or fracture of the transverse processes is evident. Mild dextroscoliosis is seen. T12-L1: No focal disc protrusion or spinal canal stenosis or neural foraminal narrowing is seen. L1-L2: No focal disc treated or spinal canal stenosis or neural foraminal narrowing is seen. L2-L3: No focal disc protrusion or spinal canal stenosis or neural foraminal narrowing is seen. L3-L4: Grade 1 anterolisthesis is seen. Diffuse disc protrusion is seen. There is streaking artifact throughout the lumbar spinal canal at this level related to the metallic surgical hardware. There is ligamentum flavum hypertrophy along with facet arthropathy. These findings combine to form a moderate spinal canal stenosis. This is unchanged. Mild bilateral neural foramina narrowing is seen bilaterally. L4-L5: There is a mild diffuse disc protrusion which is more prominent within the left neural foramen. There is moderate narrowing of left neural foramen result. Mild narrowing of the right neural foramen is seen. Laminectomy defect is present on the left side. Therefore, no significant spinal canal stenosis is seen. L5-S1: Grade 1 anterolisthesis is seen. There is a mild diffuse disc protrusion. There is mild narrowing of the left neural foramen. The right neural foramen is unremarkable. No significant spinal canal stenosis is seen. IMPRESSION: Stable study. No new compression fracture or discitis is seen. Electronically signed by: Javier Durham MD (09/02/2019 10:32 AM) [facility]
[2019-09-02] MEDS ORDERED: VASOPRESSIN 20 UNIT/ML VIAL. ONE (12:06)
[2019-09-02] MEDS ORDERED: ePHEDrine PF IN SALINE 50 MG/10 ML SYRINGE. IV ONE (12:55)
[2019-09-02] MEDS ORDERED: CLINDAMYCIN 900MG PREMIX 50 ML IV ONE (13:00)
[2019-09-02] MEDS ORDERED: REMIFENTANIL 1 MG VIAL. IV ONE (13:42)
[2019-09-02] MEDS ORDERED: CETIRIZINE HCL 10 MG TABLET. PO PRN (16:00)
[2019-09-02] MEDS ORDERED: CALCIUM CARBONATE 500 MG TAB.CHEW PO PRN (16:00)
[2019-09-02] MEDS ORDERED: diphenhydrAMINE HCL 25 MG CAPSULE PO PRN (16:00)
[2019-09-02] MEDS ORDERED: NALOXONE 0.4 MG/ML VIAL. IV PRN (16:00)
[2019-09-02] MEDS ORDERED: ACETAMINOPHEN 325 MG TABLET. PO PRN (16:00)
[2019-09-02] MEDS ORDERED: MAG HYDROX/ALUMINUM HYD/SIMETH 30 ML ORAL.SUSP PO PRN (16:00)
[2019-09-02] MEDS ORDERED: 0.9 % SODIUM CHLORIDE 10 ML DISP.SYRIN. IV PRN (16:00)
[2019-09-02] MEDS ORDERED: MAGNESIUM HYDROXIDE 2,400 MG/30 ML ORAL.SUSP. PO PRN (16:00)
[2019-09-02] MEDS ORDERED: ZOLPIDEM 5 MG TABLET. PO PRN (16:00)
[2019-09-02] MEDS ORDERED: NON FORMULARY ITEM (Albuterol Sulfate (Ventolin Hfa Inhaler) 2 PUFF) INH SCH (16:00)
[2019-09-02] MEDS ORDERED: CYCLOBENZAPRINE 10 MG TABLET. PO PRN (16:00)
[2019-09-02] MEDS ORDERED: ONDANSETRON PF 4 MG/2 ML VIAL. IVP PRN (16:00)
[2019-09-02] MEDS ORDERED: oxyCODONE/APAP 5/325 1 TAB TABLET PO PRN (16:00)
[2019-09-02] MEDS: fentaNYL PF VIAL 100 MCG/2 ML VIAL IVP PRN (17:23)
[2019-09-02] MEDS: POTASSIUM CL 20MEQ D5-0.45NACL 1,000 ML IV SCH (17:26)
[2019-09-02] MEDS: ALBUTEROL SULFATE 2.5 MG/3 ML NEBU. NEB SCH ×2 (17:56→22:00)
[2019-09-02] MEDS: oxyCODONE/APAP 5/325 1 TAB TABLET PO PRN (20:00)
[2019-09-02] MEDS: DOCUSATE SODIUM 100 MG CAPSULE. PO SCH (21:34)
[2019-09-02] MEDS: ceFAZolin SODIUM IV Push 1 GM VIAL. IVP SCH (21:39)
[2019-09-03] MEDS: oxyCODONE/APAP 5/325 1 TAB TABLET PO PRN ×5 (01:34→23:43)
[2019-09-03 03:00] VITALS: BP 99/44
[2019-09-03] MEDS: POTASSIUM CL 20MEQ D5-0.45NACL 1,000 ML IV SCH (05:38)
[2019-09-03] MEDS: ceFAZolin SODIUM IV Push 1 GM VIAL. IVP SCH ×2 (05:38→13:36)
[2019-09-03 07:00] VITALS: BP 91/46
[2019-09-03] MEDS: ALBUTEROL SULFATE 2.5 MG/3 ML NEBU. NEB SCH ×5 (07:22→22:00)
[2019-09-03] MEDS: CYANOCOBALAMIN (VITAMIN B-12) 1,000 MCG TABLET. PO SCH (08:14)
[2019-09-03] MEDS: DOCUSATE SODIUM 100 MG CAPSULE. PO SCH ×2 (08:14→21:10)
[2019-09-03] MEDS: LOSARTAN POTASSIUM 50 MG TABLET. PO SCH (08:14)
[2019-09-03 11:38] VITALS: BP 103/55
--- NOTE | 2019-09-03 11:38 | PDOC ---
PROGRESS NOTES Subjective Subjective pod #1 s/p Instrumented fusion L5- S1 incisional pain 8/10 at worst, medications help Objective Objective Vital Signs Date Time Temp Pulse Resp B/P (MAP) Pulse Ox O2 Delivery O2 Flow Rate FiO2 09/03/19 11:13 97 Room Air 09/03/19 07:00 79 16 91/46 (61) 09/03/19 03:00 97.7 97.7 09/02/19 16:10 8 Intake and Output0 09/03/19 07:00 Intake Total 06354 ml Output Total 800 ml Balance 77650 ml Intake IV Total 93090 ml Output Urine Total 700 ml Estimated Blood Loss 100 ml # Voids 3 Physical Exam General: Alert, Oriented X3, Cooperative MUSCULOSKELETAL: Other ([place]) Neuro: Normal speech Skin: Other (dressing dry and intact) Plan Plan of Care encouraged increased activity as tolerated PT Brace when up pain medication Comment Review of Relevant I have reviewed the following items stefany (where applicable) has been applied. Medications Current Medications Ondansetron HCl (Zofran) 4 mg PRN Q6HRS PRN IV NAUSEA/VOMITING; Start 09/02/19 at 07:00; Stop 09/03/19 at 06:59; Status DC Fentanyl Citrate (Fentanyl 2ml Vial) 25 mcg PRN Q5MIN PRN IV MILD PAIN 1-3; Start 09/02/19 at 07:00; Stop 09/02/19 at 19:00; Status DC Fentanyl Citrate (Fentanyl 2ml Vial) 50 mcg PRN Q5MIN PRN IV MODERATE TO SEVERE PAIN; Start 09/02/19 at 07:00; Stop 09/02/19 at 19:00; Status DC Morphine Sulfate (Morphine Sulfate) 1 mg PRN Q10MIN PRN IV SEVERE PAIN 7-10; Start 09/02/19 at 07:00; Stop 09/03/19 at 06:59; Status DC Ringer's Solution 1,000 ml @ 30 mls/hr Q24H IV Last administered on 09/02/19at 11:45; Start 09/02/19 at 07:00; Stop 09/02/19 at 18:59; Status DC Lidocaine HCl (Xylocaine-Mpf 1% 2ml Vial) 2 ml PRN 1X PRN ID PRIOR TO IV START; Start 09/02/19 at 07:00; Stop 09/02/19 at 19:00; Status DC Hydromorphone HCl (Dilaudid) 0.5 mg PRN Q10MIN PRN IV SEV PAIN, Second choice; Start 09/02/19 at 07:00; Stop 09/02/19 at 19:00; Status DC Prochlorperazine Edisylate (Compazine) 5 mg PACU PRN PRN IV NAUSEA, MRX1; Start 09/02/19 at 07:00; Stop 09/02/19 at 19:00; Status DC Bacitracin 96887 unit/Sodium Chloride 1,000 ml @ 1,000 mls/hr 1X ONCE IRR Last administered on 09/02/19 10:31; Start 09/02/19 at 06:00; Stop 09/02/19 at 06:59; Status DC Bupivacaine HCl/ Epinephrine Bitart (Sensorcain-Epi 0.5%-1:604130 Mpf) 30 ml 1X ONCE INJ Last administered on 09/02/19 10:31; Start 09/02/19 at 08:00; Stop 09/02/19 at 08:01; Status DC Cefazolin Sodium/ Dextrose 50 ml @ 100 mls/hr 1X PREOP PRN IV PRIOR TO PROCEDURE Last administered on 09/02/19at 14:02; Start 09/02/19 at 06:00; Stop 09/02/19 at 18:00; Status DC Gelatin (Gelfoam Size 100) 1 each STK-MED ONCE .ROUTE Last administered on 09/02/19 10:31; Start 09/02/19 at 07:18; Stop 09/02/19 at 07:19; Status DC Ketorolac Tromethamine (Toradol Im) 60 mg STK-MED ONCE .ROUTE Last administered on 09/02/19 10:31; Start 09/02/19 at 07:18; Stop 09/02/19 at 07:19; Status DC Thrombin 20,000 unit STK-MED ONCE TP Last administered on 09/02/19 10:31; Start 09/02/19 at 07:18; Stop 09/02/19 at 07:19; Status DC Propofol 100 ml @ As Directed STK-MED ONCE IV ; Start 09/02/19 at 07:55; Stop 09/02/19 at 07:56; Status DC Desflurane (Suprane) 90 ml STK-MED ONCE IH ; Start 09/02/19 at 08:06; Stop 09/02/19 at 08:06; Status DC Midazolam HCl (Versed) 2 mg STK-MED ONCE .ROUTE ; Start 09/02/19 at 08:06; Stop 09/02/19 at 08:06; Status DC Remifentanil HCl (Ultiva) 2 mg STK-MED ONCE IV ; Start 09/02/19 at 08:06; Stop 09/02/19 at 08:07; Status DC Fentanyl Citrate (Fentanyl 2ml Vial) 100 mcg STK-MED ONCE .ROUTE ; Start 09/02/19 at 08:06; Stop 09/02/19 at 08:07; Status DC Rocuronium [place] (Zemuron) 50 mg STK-MED ONCE .ROUTE ; Start 09/02/19 at 08:07; Stop 09/02/19 at 08:07; Status DC Phenylephrine HCl (Ayad-Synephrine Inj) 10 mg STK-MED ONCE .ROUTE ; Start 09/02/19 at 08:07; Stop 09/02/19 at 08:07; Status DC Dexamethasone Sodium Phosphate (Decadron) 20 mg STK-MED ONCE .ROUTE ; Start 09/02/19 at 08:07; Stop 09/02/19 at 08:07; Status DC Ondansetron HCl (Zofran) 4 mg STK-MED ONCE .ROUTE ; Start 09/02/19 at 08:07; Stop 09/02/19 at 08:07; Status DC Glycopyrrolate (Robinul) 1 mg STK-MED ONCE .ROUTE ; Start 09/02/19 at 10:18; Stop 09/02/19 at 10:19; Status DC Vasopressin (Vasostrict) 20 unit STK-MED ONCE .ROUTE ; Start 09/02/19 at 12:06; Stop 09/02/19 at 12:06; Status DC Phenylephrine HCl (Ayad-Synephrine Inj) 10 mg STK-MED ONCE .ROUTE ; Start 09/02/19 at 12:33; Stop 09/02/19 at 12:33; Status DC Clindamycin Phosphate 50 ml @ 100 mls/hr 1X ONCE IV ; Start 09/02/19 at 13:00; Stop 09/02/19 at 13:29; Status UNV Ephedrine Sulfate (ePHEDrine PF IN SALINE SYRINGE) 50 mg STK-MED ONCE IV ; Start 09/02/19 at 12:55; Stop 09/02/19 at 12:55; Status DC Remifentanil HCl (Ultiva) 1 mg STK-MED ONCE IV ; Start 09/02/19 at 13:42; Stop 09/02/19 at 13:42; Status DC Cetirizine HCl (ZyrTEC) 10 mg DAILY PRN PO ALLERGIES; Start 09/02/19 at 16:00 Ergocalciferol (Vitamin D2) 50,000 unit WEEKLY PO ; Start 09/09/19 at 09:00 Oxycodone/ Acetaminophen (Percocet 5/325) 1 tab PRN Q4HRS PRN PO MODERATE PAIN 4-6; Start 09/02/19 at 16:00; Stop 09/02/19 at 17:11; Status DC Non-Formulary Medication (Albuterol Sulfate (Ventolin Hfa Inhaler)) 2 puff Q4HRS INH ; Start 09/02/19 at 16:00; Status UNV Cyanocobalamin (Vitamin B-12) 1,000 mcg DAILY PO Last administered on 09/03/19at 08:14; Start 09/03/19 at 09:00 Losartan Potassium (Cozaar) 50 mg DAILY PO ; Start 09/03/19 at 09:00 Fentanyl Citrate (Fentanyl 2ml Vial) 50 mcg PRN Q2HR PRN IVP PAIN Last administered on 09/02/19at 17:23; Start 09/02/19 at 16:00 Acetaminophen (Tylenol) 650 mg PRN Q6HRS PRN PO MILD PAIN / TEMP; Start 09/02/19 at 16:00 Al Hydroxide/Mg Hydroxide (Mylanta Plus Xs) 30 ml PRN Q3HRS PRN PO HEARTBURN / GAS; Start 09/02/19 at 16:00 Calcium Carbonate/ Glycine (Tums) 500 mg PRN Q3HRS PRN PO INDIGESTION; Start 09/02/19 at 16:00 Diphenhydramine HCl (Benadryl) 25 mg PRN Q6HRS PRN PO ITCHING; Start 09/02/19 at 16:00 Zolpidem Tartrate (Ambien) 5 mg PRN QHS PRN PO INSOMNIA, MAY REPEAT IN 1HR; Start 09/02/19 at 16:00 Naloxone HCl (Narcan) 0.1 mg PRN Q2MIN PRN IV ADMIN; Start 09/02/19 at 16:00 Sodium Chloride (Normal Saline Flush) 3 ml QSHIFT PRN IV AFTER MEDS AND BLOOD DRAWS; Start 09/02/19 at 16:00 Potassium Chloride/Dextrose/ Sod Cl 1,000 ml @ 75 mls/hr [id number] IV Last administered on 09/03/19at 05:38; Start 09/02/19 at 17:00 Oxycodone/ Acetaminophen (Percocet 5/325) 1 tab PRN Q4HRS PRN PO MILD PAIN, 1ST CHOICE Last administered on 09/02/19at 20:00; Start 09/02/19 at 16:00 Oxycodone/ Acetaminophen (Percocet 5/325) 2 tab PRN Q4HRS PRN PO SEVERE PAIN Last administered on 09/03/19at 08:15; Start 09/02/19 at 16:00 Docusate Sodium (Colace) 100 mg BID PO Last administered on 09/03/19at 08:14; Start 09/02/19 at 21:00 Magnesium Hydroxide (Milk Of Magnesia) 2,400 mg PRN Q12HR PRN PO CONSTIPATION; Start 09/02/19 at 16:00 Ondansetron HCl (Zofran) 4 mg PRN Q6HRS PRN IVP NAUESA, 1ST CHOICE; Start 09/02/19 at 16:00 Cefazolin Sodium (Ancef) 1 gm Q8H IVP Last administered on 09/03/19at 05:38; Start 09/02/19 at 22:00; Stop 09/03/19 at 14:01 Cyclobenzaprine HCl (Flexeril) 10 mg PRN Q8HRS PRN PO MUSCLE SPASMS; Start 09/02/19 at 16:00 Albuterol Sulfate (Ventolin Neb Soln) 2.5 mg Q4HRS W/A NEB Last administered on 09/03/19at 11:12; Start 09/02/19 at 18:00 Active Scripts Active Percocet 5-325 Mg Tablet (Oxycodone/Acetaminophen) 1 Each Tablet 1 Tab PO PRN Q4HRS PRN Reported Cyclobenzaprine Hcl 5 Mg Tablet 5 Mg PO TID Losartan-Hctz 50-12.5 Mg Tab (Losartan/Hydrochlorothiazide) 1 Each Tablet 1 Tab PO DAILY Vitamin D2 (Ergocalciferol (Vitamin D2)) 50,000 Unit Capsule 1 Cap PO WEEKLY Zyrtec (Cetirizine Hcl) 10 Mg Tablet 1 Tab PO DAILY PRN Vitamin B12 (Cyanocobalamin (Vitamin B-12)) 2,500 Mcg Tab.chew 1,000 Mcg PO DAILY Ventolin Hfa Inhaler (Albuterol Sulfate) 18 Gm Hfa.aer.ad 2 Puff INH Q4HRS Vitals/I & O Vital Sign - Last 24 Hours 09/02/19 09/02/19 09/02/19 09/02/19 15:55 15:55 16:10 16:25 Temp 98.7 98.7 Pulse 112 112 110 Resp 18 18 14 B/P (MAP) 135/59 121/70 125/69 Pulse Ox 100 100 97 O2 Delivery Mask Simple Mask Simple Mask Room Air O2 Flow Rate 8 8 8 09/02/19 09/02/19 09/02/19 09/02/19 16:40 16:45 16:50 16:56 Temp 98.7 98.1 98.7 98.1 Pulse 105 71 105 Resp 18 18 B/P (MAP) 112/53 103/58 (73) 98/60 (73) Pulse Ox 98 97 97 O2 Delivery Room Air Room Air Room Air Room Air 09/02/19 09/02/19 09/02/19 09/02/19 17:12 17:23 17:26 17:41 Pulse 54 66 77 B/P (MAP) 95/57 (70) 87/46 (60) 77/42 (54) Pulse Ox 96 95 96 O2 Delivery Room Air Room Air Room Air Room Air 09/02/19 09/02/19 09/02/19 09/02/19 17:57 18:11 18:15 18:41 Pulse 89 B/P (MAP) 91/46 (61) 88/33 (51) Pulse Ox 97 99 O2 Delivery Room Air Room Air Room Air 09/02/19 09/02/19 09/02/19 09/02/19 19:49 20:00 21:00 23:00 Temp 97.3 97.3 Pulse 95 Resp 18 B/P (MAP) 99/49 (66) Pulse Ox 99 99 97 O2 Delivery Room Air Room Air Room Air Room Air 09/03/19 09/03/19 09/03/19 09/03/19 01:34 02:34 03:00 07:00 Temp 97.7 97.7 Pulse 78 79 Resp 16 16 B/P (MAP) 99/44 (62) 91/46 (61) Pulse Ox 97 97 96 97 O2 Delivery Room Air Room Air Room Air Room Air 09/03/19 09/03/19 09/03/19 09/03/19 07:22 08:15 08:21 09:20 Pulse Ox 97 O2 Delivery Room Air Room Air Room Air Room Air 09/03/19 11:13 Pulse Ox 97 O2 Delivery Room Air Intake and Output 09/02/19 09/02/19 09/03/19 15:00 23:00 07:00 Intake Total 36364 ml Output Total 800 ml Balance 21230 ml MELISSA MONTIEL APRN Sep 03, 2019 11:38
[2019-09-03] MEDS: fentaNYL PF VIAL 100 MCG/2 ML VIAL IVP PRN (11:46)
[2019-09-03 15:21] VITALS: BP 112/67
[2019-09-03 18:33] VITALS: BP 106/55
[2019-09-03 23:30] VITALS: BP 99/58
[2019-09-04] VITALS (13 sets, daily range): BP systolic 92–115; BP diastolic 51–73
[2019-09-04] MEDS: ALBUTEROL SULFATE 2.5 MG/3 ML NEBU. NEB SCH ×4 (06:00→20:48)
[2019-09-04] MEDS: oxyCODONE/APAP 5/325 1 TAB TABLET PO PRN ×3 (06:07→22:10)
[2019-09-04] MEDS: LOSARTAN POTASSIUM 50 MG TABLET. PO SCH (08:51)
[2019-09-04] MEDS: CYANOCOBALAMIN (VITAMIN B-12) 1,000 MCG TABLET. PO SCH (08:51)
[2019-09-04] MEDS: DOCUSATE SODIUM 100 MG CAPSULE. PO SCH ×2 (08:51→20:38)
--- NOTE | 2019-09-04 10:10 | NUR ---
During therapy session c/o being lightheaded, requested cool wash cloth, vital signs 69/48-87, reclined in lounge chair wash cloth to forehead, reassessed vital signs 90/57 80, informed holding pain medication for a while r/t hypotension, 500cc bolus of NS being given, call light in reach, remains in chair
[2019-09-04] MEDS ORDERED: IV NORMAL SALINE 500ML BAG 500 ML IV ONE (10:15)
--- NOTE | 2019-09-04 13:34 | PDOC ---
PROGRESS NOTES Subjective Subjective POD #2 resting in bed incisional pain with activity Objective Objective Vital Signs Date Time Temp Pulse Resp B/P (MAP) Pulse Ox O2 Delivery O2 Flow Rate FiO2 09/04/19 11:55 87 111/55 (73) 09/04/19 08:00 Room Air 09/04/19 07:41 99 09/04/19 06:13 98.1 20 98.1 09/02/19 16:10 8 Intake and Output 09/04/19 07:00 Intake Total 640 ml Balance 640 ml Intake Oral 640 ml # Voids 9 Physical Exam General: No acute distress MUSCULOSKELETAL: Other Skin: Other (dressing dry and intact) Plan Plan of Care increase activity as tolerated Brace when up PT pain medication Comment Review of Relevant I have reviewed the following items stefany (where applicable) has been applied. Medications Current Medications Ondansetron HCl (Zofran) 4 mg PRN Q6HRS PRN IV NAUSEA/VOMITING; Start 09/02/19 at 07:00; Stop 09/03/19 at 06:59; Status DC Fentanyl Citrate (Fentanyl 2ml Vial) 25 mcg PRN Q5MIN PRN IV MILD PAIN 1-3; Start 09/02/19 at 07:00; Stop 09/02/19 at 19:00; Status DC Fentanyl Citrate (Fentanyl 2ml Vial) 50 mcg PRN Q5MIN PRN IV MODERATE TO SEVERE PAIN; Start 09/02/19 at 07:00; Stop 09/02/19 at 19:00; Status DC Morphine Sulfate (Morphine Sulfate) 1 mg PRN Q10MIN PRN IV SEVERE PAIN 7-10; Start 09/02/19 at 07:00; Stop 09/03/19 at 06:59; Status DC Ringer's Solution 1,000 ml @ 30 mls/hr Q24H IV Last administered on 09/02/19at 11:45; Start 09/02/19 at 07:00; Stop 09/02/19 at 18:59; Status DC Lidocaine HCl (Xylocaine-Mpf 1% 2ml Vial) 2 ml PRN 1X PRN ID PRIOR TO IV START; Start 09/02/19 at 07:00; Stop 09/02/19 at 19:00; Status DC Hydromorphone HCl (Dilaudid) 0.5 mg PRN Q10MIN PRN IV SEV PAIN, Second choice; Start 09/02/19 at 07:00; Stop 09/02/19 at 19:00; Status DC Prochlorperazine Edisylate (Compazine) 5 mg PACU PRN PRN IV NAUSEA, MRX1; Start 09/02/19 at 07:00; Stop 09/02/19 at 19:00; Status DC Bacitracin 68691 unit/Sodium Chloride 1,000 ml @ 1,000 mls/hr 1X ONCE IRR Last administered on 09/02/19at 10:31; Start 09/02/19 at 06:00; Stop 09/02/19 at 06:59; Status DC Bupivacaine HCl/ Epinephrine Bitart (Sensorcain-Epi 0.5%-1:296556 Mpf) 30 ml 1X ONCE INJ Last administered on 09/02/19 10:31; Start 09/02/19 at 08:00; Stop 09/02/19 at 08:01; Status DC Cefazolin Sodium/ Dextrose 50 ml @ 100 mls/hr 1X PREOP PRN IV PRIOR TO PROCEDURE Last administered on 09/02/19at 14:02; Start 09/02/19 at 06:00; Stop 09/02/19 at 18:00; Status DC Gelatin (Gelfoam Size 100) 1 each STK-MED ONCE .ROUTE Last administered on 09/02/19 10:31; Start 09/02/19 at 07:18; Stop 09/02/19 at 07:19; Status DC Ketorolac Tromethamine (Toradol Im) 60 mg STK-MED ONCE .ROUTE Last administered on 09/02/19 10:31; Start 09/02/19 at 07:18; Stop 09/02/19 at 07:19; Status DC Thrombin 20,000 unit STK-MED ONCE TP Last administered on 09/02/19 10:31; Start 09/02/19 at 07:18; Stop 09/02/19 at 07:19; Status DC Propofol 100 ml @ As Directed STK-MED ONCE IV ; Start 09/02/19 at 07:55; Stop 09/02/19 at 07:56; Status DC Desflurane (Suprane) 90 ml STK-MED ONCE IH ; Start 09/02/19 at 08:06; Stop at 08:06; Status DC Midazolam HCl (Versed) 2 mg STK-MED ONCE .ROUTE ; Start 09/02/19 at 08:06; Stop 09/02/19 at 08:06; Status DC Remifentanil HCl (Ultiva) 2 mg STK-MED ONCE IV ; Start 09/02/19 at 08:06; Stop 09/02/19 at 08:07; Status DC Fentanyl Citrate (Fentanyl 2ml Vial) 100 mcg STK-MED ONCE .ROUTE ; Start 09/02/19 at 08:06; Stop 09/02/19 at 08:07; Status DC Rocuronium [place] (Zemuron) 50 mg STK-MED ONCE .ROUTE ; Start 09/02/19 at 08:07; Stop 09/02/19 at 08:07; Status DC Phenylephrine HCl (Ayad-Synephrine Inj) 10 mg STK-MED ONCE .ROUTE ; Start 09/02/19 at 08:07; Stop 09/02/19 at 08:07; Status DC Dexamethasone Sodium Phosphate (Decadron) 20 mg STK-MED ONCE .ROUTE ; Start 09/02/19 at 08:07; Stop 09/02/19 at 08:07; Status DC Ondansetron HCl (Zofran) 4 mg STK-MED ONCE .ROUTE ; Start 09/02/19 at 08:07; Stop 09/02/19 at 08:07; Status DC Glycopyrrolate (Robinul) 1 mg STK-MED ONCE .ROUTE ; Start 09/02/19 at 10:18; Stop 09/02/19 at 10:19; Status DC Vasopressin (Vasostrict) 20 unit STK-MED ONCE .ROUTE ; Start 09/02/19 at 12:06; Stop 09/02/19 at 12:06; Status DC Phenylephrine HCl (Ayad-Synephrine Inj) 10 mg STK-MED ONCE .ROUTE ; Start 09/02/19 at 12:33; Stop 09/02/19 at 12:33; Status DC Clindamycin Phosphate 50 ml @ 100 mls/hr 1X ONCE IV ; Start 09/02/19 at 13:00; Stop 09/02/19 at 13:29; Status UNV Ephedrine Sulfate (ePHEDrine PF IN SALINE SYRINGE) 50 mg STK-MED ONCE IV ; Start 09/02/19 at 12:55; Stop 09/02/19 at 12:55; Status DC Remifentanil HCl (Ultiva) 1 mg STK-MED ONCE IV ; Start 09/02/19 at 13:42; Stop 09/02/19 at 13:42; Status DC Cetirizine HCl (ZyrTEC) 10 mg DAILY PRN PO ALLERGIES; Start 09/02/19 at 16:00 Ergocalciferol (Vitamin D2) 50,000 unit WEEKLY PO ; Start 09/09/19 at 09:00 Oxycodone/ Acetaminophen (Percocet 5/325) 1 tab PRN Q4HRS PRN PO MODERATE PAIN 4-6; Start 09/02/19 at 16:00; Stop 09/02/19 at 17:11; Status DC Non-Formulary Medication (Albuterol Sulfate (Ventolin Hfa Inhaler)) 2 puff Q4HRS INH ; Start 09/02/19 at 16:00; Status UNV Cyanocobalamin (Vitamin B-12) 1,000 mcg DAILY PO Last administered on 09/04/19at 08:51; Start 09/03/19 at 09:00 Losartan Potassium (Cozaar) 50 mg DAILY PO ; Start 09/03/19 at 09:00 Fentanyl Citrate (Fentanyl 2ml Vial) 50 mcg PRN Q2HR PRN IVP PAIN Last administered on 09/03/19at 11:46; Start 09/02/19 at 16:00 Acetaminophen (Tylenol) 650 mg PRN Q6HRS PRN PO MILD PAIN / TEMP; Start 09/02/19 at 16:00 Al Hydroxide/Mg Hydroxide (Mylanta Plus Xs) 30 ml PRN Q3HRS PRN PO HEARTBURN / GAS; Start 09/02/19 at 16:00 Calcium Carbonate/ Glycine (Tums) 500 mg PRN Q3HRS PRN PO INDIGESTION; Start 09/02/19 at 16:00 Diphenhydramine HCl (Benadryl) 25 mg PRN Q6HRS PRN PO ITCHING; Start 09/02/19 at 16:00 Zolpidem Tartrate (Ambien) 5 mg PRN QHS PRN PO INSOMNIA, MAY REPEAT IN 1HR Last administered on 09/03/19at 21:11; Start 09/02/19 at 16:00 Naloxone HCl (Narcan) 0.1 mg PRN Q2MIN PRN IV ADMIN; Start 09/02/19 at 16:00 Sodium Chloride (Normal Saline Flush) 3 ml QSHIFT PRN IV AFTER MEDS AND BLOOD DRAWS; Start 09/02/19 at 16:00 Potassium Chloride/Dextrose/ Sod Cl 1,000 ml @ 75 mls/hr [id number] IV Last administered on 09/03/19at 05:38; Start 09/02/19 at 17:00; Stop 09/03/19 at 16:23; Status DC Oxycodone/ Acetaminophen (Percocet 5/325) 1 tab PRN Q4HRS PRN PO MILD PAIN, 1ST CHOICE Last administered on 09/04/19at 06:07; Start 09/02/19 at 16:00 Oxycodone/ Acetaminophen (Percocet 5/325) 2 tab PRN Q4HRS PRN PO SEVERE PAIN Last administered on 09/03/19at 23:43; Start 09/02/19 at 16:00 Docusate Sodium (Colace) 100 mg BID PO Last administered on 09/04/19at 08:51; Start 09/02/19 at 21:00 Magnesium Hydroxide (Milk Of Magnesia) 2,400 mg PRN Q12HR PRN PO CONSTIPATION; Start 09/02/19 at 16:00 Ondansetron HCl (Zofran) 4 mg PRN Q6HRS PRN IVP NAUESA, 1ST CHOICE; Start 09/02/19 at 16:00 Cefazolin Sodium (Ancef) 1 gm Q8H IVP Last administered on 09/03/19at 13:36; Start 09/02/19 at 22:00; Stop 09/03/19 at 14:01; Status DC Cyclobenzaprine HCl (Flexeril) 10 mg PRN Q8HRS PRN PO MUSCLE SPASMS Last administered on 09/03/19at 19:07; Start 09/02/19 at 16:00 Albuterol Sulfate (Ventolin Neb Soln) 2.5 mg Q4HRS W/A NEB Last administered on 09/04/19at 06:00; Start 09/02/19 at 18:00 Sodium Chloride 500 ml @ 500 mls/hr 1X ONCE IV Last administered on 09/04/19at 10:14; Start 09/04/19 at 10:15; Stop 09/04/19 at 11:14; Status DC Active Scripts Active Percocet 5-325 Mg Tablet (Oxycodone/Acetaminophen) 1 Each Tablet 1 Tab PO PRN Q4HRS PRN Reported Cyclobenzaprine Hcl 5 Mg Tablet 5 Mg PO TID Losartan-Hctz 50-12.5 Mg Tab (Losartan/Hydrochlorothiazide) 1 Each Tablet 1 Tab PO DAILY Vitamin D2 (Ergocalciferol (Vitamin D2)) 50,000 Unit Capsule 1 Cap PO WEEKLY Zyrtec (Cetirizine Hcl) 10 Mg Tablet 1 Tab PO DAILY PRN Vitamin B12 (Cyanocobalamin (Vitamin B-12)) 2,500 Mcg Tab.chew 1,000 Mcg PO DAILY Ventolin Hfa Inhaler (Albuterol Sulfate) 18 Gm Hfa.aer.ad 2 Puff INH Q4HRS Vitals/I & O Vital Sign - Last 24 Hours 09/03/19 09/03/19 09/03/19 09/03/19 15:19 15:20 15:21 16:29 Temp 98.1 98.1 Pulse 72 B/P (MAP) 112/67 (82) Pulse Ox 100 100 100 O2 Delivery Room Air Room Air Room Air Room Air 09/03/19 09/03/19 09/03/19 09/03/19 17:51 18:33 18:42 19:35 Temp 98.7 98.7 Pulse 86 Resp 18 B/P (MAP) 106/55 (72) Pulse Ox 99 99 O2 Delivery Room Air Room Air Room Air Room Air 09/03/19 09/03/19 09/03/19 09/04/19 19:45 23:30 23:43 01:00 Temp 97.5 97.5 Pulse 88 Resp 20 20 18 B/P (MAP) 99/58 (72) Pulse Ox 97 96 96 O2 Delivery Room Air Room Air Room Air Room Air 09/04/19 09/04/19 09/04/19 09/04/19 02:30 06:07 06:13 07:41 Temp 98.3 98.1 98.3 98.1 Pulse 85 81 Resp 18 18 20 B/P (MAP) 115/66 (82) 104/51 (68) Pulse Ox 99 96 97 99 O2 Delivery Room Air Room Air Room Air 09/04/19 09/04/19 09/04/19 09/04/19 08:00 08:51 09:00 10:08 Pulse 98 98 80 B/P (MAP) 105/70 105/70 (82) 103/73 (83) O2 Delivery Room Air 09/04/19 09/04/19 09/04/19 09/04/19 10:15 10:37 11:03 11:26 Pulse 80 81 77 81 B/P (MAP) 100/69 (79) 98/64 (75) 105/62 (76) 109/57 (74) 09/04/19 11:55 Pulse 87 B/P (MAP) 111/55 (73) Intake and Output 09/03/19 09/03/19 09/04/19 15:00 23:00 07:00 Intake Total 240 ml 200 ml 200 ml Balance 240 ml 200 ml 200 ml MELISSA MONTEIL APRN Sep 04, 2019 13:34
[2019-09-05] VITALS (10 sets, daily range): BP systolic 82–109; BP diastolic 45–70
[2019-09-05] MEDS: oxyCODONE/APAP 5/325 1 TAB TABLET PO PRN ×5 (03:54→21:57)
[2019-09-05] MEDS: ALBUTEROL SULFATE 2.5 MG/3 ML NEBU. NEB SCH ×4 (06:54→18:00)
[2019-09-05] MEDS: DOCUSATE SODIUM 100 MG CAPSULE. PO SCH ×2 (07:57→21:58)
[2019-09-05] MEDS: CYANOCOBALAMIN (VITAMIN B-12) 1,000 MCG TABLET. PO SCH (07:58)
[2019-09-05] MEDS: LOSARTAN POTASSIUM 50 MG TABLET. PO SCH (07:58)
--- NOTE | 2019-09-05 16:03 | PDOC ---
PROGRESS NOTES Subjective Subjective POD #3 Back/ incision pain improving Objective Objective Vital Signs Date Time Temp Pulse Resp B/P (MAP) Pulse Ox O2 Delivery O2 Flow Rate FiO2 09/05/19 14:49 98.4 91 16 93/46 (62) 100 Room Air 98.4 09/02/19 16:10 8 Intake and Output 09/05/19 07:00 Intake Total 1250 ml Balance 1250 ml Intake Oral 1250 ml # Voids 10 Physical Exam General: Alert, Oriented X3, Cooperative, No acute distress MUSCULOSKELETAL: Other ([place]) Skin: Other (dressing C,D,I, flat) Plan Plan of Care PT Encouraged increased activity as tolerated home tomorrow with Home health Comment Review of Relevant I have reviewed the following items stefany (where applicable) has been applied. Medications Current Medications Ondansetron HCl (Zofran) 4 mg PRN Q6HRS PRN IV NAUSEA/VOMITING; Start 09/02/19 at 07:00; Stop 09/03/19 at 06:59; Status DC Fentanyl Citrate (Fentanyl 2ml Vial) 25 mcg PRN Q5MIN PRN IV MILD PAIN 1-3; Start 09/02/19 at 07:00; Stop 09/02/19 at 19:00; Status DC Fentanyl Citrate (Fentanyl 2ml Vial) 50 mcg PRN Q5MIN PRN IV MODERATE TO SEVERE PAIN; Start 09/02/19 at 07:00; Stop 09/02/19 at 19:00; Status DC Morphine Sulfate (Morphine Sulfate) 1 mg PRN Q10MIN PRN IV SEVERE PAIN 7-10; Start 09/02/19 at 07:00; Stop 09/03/19 at 06:59; Status DC Ringer's Solution 1,000 ml @ 30 mls/hr Q24H IV Last administered on 09/02/19at 11:45; Start 09/02/19 at 07:00; Stop 09/02/19 at 18:59; Status DC Lidocaine HCl (Xylocaine-Mpf 1% 2ml Vial) 2 ml PRN 1X PRN ID PRIOR TO IV START; Start 09/02/19 at 07:00; Stop 09/02/19 at 19:00; Status DC Hydromorphone HCl (Dilaudid) 0.5 mg PRN Q10MIN PRN IV SEV PAIN, Second choice; Start 09/02/19 at 07:00; Stop 09/02/19 at 19:00; Status DC Prochlorperazine Edisylate (Compazine) 5 mg PACU PRN PRN IV NAUSEA, MRX1; Start 09/02/19 at 07:00; Stop 09/02/19 at 19:00; Status DC Bacitracin 61885 unit/Sodium Chloride 1,000 ml @ 1,000 mls/hr 1X ONCE IRR Last administered on 09/02/19at 10:31; Start 09/02/19 at 06:00; Stop 09/02/19 at 06:59; Status DC Bupivacaine HCl/ Epinephrine Bitart (Sensorcain-Epi 0.5%-1:291552 Mpf) 30 ml 1X ONCE INJ Last administered on 09/02/19at 10:31; Start 09/02/19 at 08:00; Stop 09/02/19 at 08:01; Status DC Cefazolin Sodium/ Dextrose 50 ml @ 100 mls/hr 1X PREOP PRN IV PRIOR TO PROCEDURE Last administered on 09/02/19at 14:02; Start 09/02/19 at 06:00; Stop 09/02/19 at 18:00; Status DC Gelatin (Gelfoam Size 100) 1 each STK-MED ONCE .ROUTE Last administered on 09/02/19at 10:31; Start 09/02/19 at 07:18; Stop 09/02/19 at 07:19; Status DC Ketorolac Tromethamine (Toradol Im) 60 mg STK-MED ONCE .ROUTE Last administered on 09/02/19at 10:31; Start 09/02/19 at 07:18; Stop 09/02/19 at 07:19; Status DC Thrombin 20,000 unit STK-MED ONCE TP Last administered on 09/02/19at 10:31; Start 09/02/19 at 07:18; Stop 09/02/19 at 07:19; Status DC Propofol 100 ml @ As Directed STK-MED ONCE IV ; Start 09/02/19 at 07:55; Stop 09/02/19 at 07:56; Status DC Desflurane (Suprane) 90 ml STK-MED ONCE IH ; Start 09/02/19 at 08:06; Stop 09/02/19 at 08:06; Status DC Midazolam HCl (Versed) 2 mg STK-MED ONCE .ROUTE ; Start 09/02/19 at 08:06; Stop 09/02/19 at 08:06; Status DC Remifentanil HCl (Ultiva) 2 mg STK-MED ONCE IV ; Start 09/02/19 at 08:06; Stop 09/02/19 at 08:07; Status DC Fentanyl Citrate (Fentanyl 2ml Vial) 100 mcg STK-MED ONCE .ROUTE ; Start 09/02/19 at 08:06; Stop 09/02/19 at 08:07; Status DC Rocuronium [place] (Zemuron) 50 mg STK-MED ONCE .ROUTE ; Start 09/02/19 at 08:07; Stop 09/02/19 at 08:07; Status DC Phenylephrine HCl (Ayad-Synephrine Inj) 10 mg STK-MED ONCE .ROUTE ; Start 09/02/19 at 08:07; Stop 09/02/19 at 08:07; Status DC Dexamethasone Sodium Phosphate (Decadron) 20 mg STK-MED ONCE .ROUTE ; Start 09/02/19 at 08:07; Stop 09/02/19 at 08:07; Status DC Ondansetron HCl (Zofran) 4 mg STK-MED ONCE .ROUTE ; Start 09/02/19 at 08:07; Stop 09/02/19 at 08:07; Status DC Glycopyrrolate (Robinul) 1 mg STK-MED ONCE .ROUTE ; Start 09/02/19 at 10:18; Stop 09/02/19 at 10:19; Status DC Vasopressin (Vasostrict) 20 unit STK-MED ONCE .ROUTE ; Start 09/02/19 at 12:06; Stop 09/02/19 at 12:06; Status DC Phenylephrine HCl (Ayad-Synephrine Inj) 10 mg STK-MED ONCE .ROUTE ; Start 09/02/19 at 12:33; Stop 09/02/19 at 12:33; Status DC Clindamycin Phosphate 50 ml @ 100 mls/hr 1X ONCE IV ; Start 09/02/19 at 13:00; Stop 09/02/19 at 13:29; Status UNV Ephedrine Sulfate (ePHEDrine PF IN SALINE SYRINGE) 50 mg STK-MED ONCE IV ; Start 09/02/19 at 12:55; Stop 09/02/19 at 12:55; Status DC Remifentanil HCl (Ultiva) 1 mg STK-MED ONCE IV ; Start 09/02/19 at 13:42; Stop 09/02/19 at 13:42; Status DC Cetirizine HCl (ZyrTEC) 10 mg DAILY PRN PO ALLERGIES; Start 09/02/19 at 16:00 Ergocalciferol (Vitamin D2) 50,000 unit WEEKLY PO ; Start 09/09/19 at 09:00 Oxycodone/ Acetaminophen (Percocet 5/325) 1 tab PRN Q4HRS PRN PO MODERATE PAIN 4-6; Start 09/02/19 at 16:00; Stop 09/02/19 at 17:11; Status DC Non-Formulary Medication (Albuterol Sulfate (Ventolin Hfa Inhaler)) 2 puff Q4HRS INH ; Start 09/02/19 at 16:00; Status UNV Cyanocobalamin (Vitamin B-12) 1,000 mcg DAILY PO Last administered on 09/05/19at 07:58; Start 09/03/19 at 09:00 Losartan Potassium (Cozaar) 50 mg DAILY PO ; Start 09/03/19 at 09:00 Fentanyl Citrate (Fentanyl 2ml Vial) 50 mcg PRN Q2HR PRN IVP PAIN Last administered on 09/03/19at 11:46; Start 09/02/19 at 16:00 Acetaminophen (Tylenol) 650 mg PRN Q6HRS PRN PO MILD PAIN / TEMP; Start 09/02/19 at 16:00 Al Hydroxide/Mg Hydroxide (Mylanta Plus Xs) 30 ml PRN Q3HRS PRN PO HEARTBURN / GAS; Start 09/02/19 at 16:00 Calcium Carbonate/ Glycine (Tums) 500 mg PRN Q3HRS PRN PO INDIGESTION; Start 09/02/19 at 16:00 Diphenhydramine HCl (Benadryl) 25 mg PRN Q6HRS PRN PO ITCHING; Start 09/02/19 at 16:00 Zolpidem Tartrate (Ambien) 5 mg PRN QHS PRN PO INSOMNIA, MAY REPEAT IN 1HR Last administered on 09/03/19at 21:11; Start 09/02/19 at 16:00 Naloxone HCl (Narcan) 0.1 mg PRN Q2MIN PRN IV ADMIN; Start 09/02/19 at 16:00 Sodium Chloride (Normal Saline Flush) 3 ml QSHIFT PRN IV AFTER MEDS AND BLOOD DRAWS; Start 09/02/19 at 16:00 Potassium Chloride/Dextrose/ Sod Cl 1,000 ml @ 75 mls/hr [id number] IV Last administered on 09/03/19at 05:38; Start 09/02/19 at 17:00; Stop 09/03/19 at 16:23; Status DC Oxycodone/ Acetaminophen (Percocet 5/325) 1 tab PRN Q4HRS PRN PO MILD PAIN, 1ST CHOICE Last administered on 09/05/19at 12:14; Start 09/02/19 at 16:00 Oxycodone/ Acetaminophen (Percocet 5/325) 2 tab PRN Q4HRS PRN PO SEVERE PAIN Last administered on 09/05/19at 07:59; Start 09/02/19 at 16:00 Docusate Sodium (Colace) 100 mg BID PO Last administered on 09/05/19at 07:57; Start 09/02/19 at 21:00 Magnesium Hydroxide (Milk Of Magnesia) 2,400 mg PRN Q12HR PRN PO CONSTIPATION; Start 09/02/19 at 16:00 Ondansetron HCl (Zofran) 4 mg PRN Q6HRS PRN IVP NAUESA, 1ST CHOICE; Start 09/02/19 at 16:00 Cefazolin Sodium (Ancef) 1 gm Q8H IVP Last administered on 09/03/19at 13:36; Start 09/02/19 at 22:00; Stop 09/03/19 at 14:01; Status DC Cyclobenzaprine HCl (Flexeril) 10 mg PRN Q8HRS PRN PO MUSCLE SPASMS Last administered on 09/03/19at 19:07; Start 09/02/19 at 16:00 Albuterol Sulfate (Ventolin Neb Soln) 2.5 mg Q4HRS W/A NEB Last administered on 09/05/19at 10:54; Start 09/02/19 at 18:00 Sodium Chloride 500 ml @ 500 mls/hr 1X ONCE IV Last administered on 09/04/19at 10:14; Start 09/04/19 at 10:15; Stop 09/04/19 at 11:14; Status DC Active Scripts Active Percocet 5-325 Mg Tablet (Oxycodone/Acetaminophen) 1 Each Tablet 1 Tab PO PRN Q4HRS PRN Reported Cyclobenzaprine Hcl 5 Mg Tablet 5 Mg PO TID Losartan-Hctz 50-12.5 Mg Tab (Losartan/Hydrochlorothiazide) 1 Each Tablet 1 Tab PO DAILY Vitamin D2 (Ergocalciferol (Vitamin D2)) 50,000 Unit Capsule 1 Cap PO WEEKLY Zyrtec (Cetirizine Hcl) 10 Mg Tablet 1 Tab PO DAILY PRN Vitamin B12 (Cyanocobalamin (Vitamin B-12)) 2,500 Mcg Tab.chew 1,000 Mcg PO KRISTIE LY Ventolin Hfa Inhaler (Albuterol Sulfate) 18 Gm Hfa.aer.ad 2 Puff INH Q4HRS Vitals/I & O Vital Sign - Last 24 Hours 09/04/19 09/04/19 09/04/19 09/04/19 16:01 18:06 19:43 19:45 Temp 99.7 98.2 99.7 98.2 Pulse 105 Resp 14 B/P (MAP) 110/66 (81) Pulse Ox 96 O2 Delivery Room Air Room Air Room Air 09/04/19 09/04/19 09/04/19 09/04/19 20:47 21:04 22:00 22:10 Temp 98.4 98.6 98.4 98.6 Pulse 96 86 Resp 20 20 20 B/P (MAP) 92/53 (66) 114/58 (76) Pulse Ox 98 96 96 O2 Delivery Room Air Room Air Room Air Room Air 09/04/19 09/05/19 09/05/19 09/05/19 23:10 02:38 03:54 05:19 Temp 99.3 99.3 Pulse 99 Resp 18 20 20 20 B/P (MAP) 99/68 (78) Pulse Ox 98 96 96 O2 Delivery Room Air Room Air Room Air Room Air 09/05/19 09/05/19 09/05/19 09/05/19 06:01 06:55 07:40 07:58 Temp 98.7 98.7 Pulse 83 82 Resp 18 B/P (MAP) 103/70 (81) 128/73 Pulse Ox 97 100 O2 Delivery Room Air Room Air Room Air 09/05/19 09/05/19 09/05/19 09/05/19 07:59 08:44 09:59 10:46 Temp 98.4 98.8 98.4 98.8 Pulse 84 90 Resp 16 16 B/P (MAP) 86/49 (61) 82/54 (63) Pulse Ox 100 100 O2 Delivery Room Air Room Air Room Air Room Air 09/05/19 09/05/19 09/05/19 09/05/19 10:54 11:48 12:14 13:03 Pulse 74 Resp 16 B/P (MAP) 104/50 (68) Pulse Ox 100 100 100 O2 Delivery Room Air Room Air Room Air Room Air 09/05/19 09/05/19 13:50 14:49 Temp 98.6 98.4 98.6 98.4 Pulse 92 91 Resp 16 16 B/P (MAP) 99/45 (63) 93/46 (62) Pulse Ox 100 100 O2 Delivery Room Air Room Air Intake and Output 09/04/19 09/04/19 09/05/19 15:00 23:00 07:00 Intake Total 750 ml 500 ml Balance 750 ml 500 ml BRUCE THOMPSON MD Sep 05, 2019 16:03
[2019-09-06] MEDS: ALBUTEROL SULFATE 2.5 MG/3 ML NEBU. NEB SCH ×4 (06:00→14:00)
[2019-09-06 06:34] VITALS: BP 99/67
[2019-09-06 08:42] VITALS: BP 96/61
[2019-09-06] MEDS: DOCUSATE SODIUM 100 MG CAPSULE. PO SCH (08:45)
[2019-09-06] MEDS: LOSARTAN POTASSIUM 50 MG TABLET. PO SCH (08:45)
[2019-09-06] MEDS: CYANOCOBALAMIN (VITAMIN B-12) 1,000 MCG TABLET. PO SCH (08:45)
[2019-09-06] MEDS: oxyCODONE/APAP 5/325 1 TAB TABLET PO PRN ×2 (08:48→15:24)
[2019-09-06] MEDS ORDERED: FLUCONAZOLE 100 MG TABLET. PO ONE (10:30)
[2019-09-06 11:05] VITALS: BP 102/67
[2019-09-06] MEDS ORDERED: DOCU-153 PO (11:54)
[2019-09-06] MEDS ORDERED: CYCL10TA2 PO (11:54)
--- NOTE | 2019-09-06 12:12 | PDOC ---
PROGRESS NOTES Subjective Subjective patient seen at 0945 ambulating in room had BM pain improved Objective Objective Vital Signs Date Time Temp Pulse Resp B/P (MAP) Pulse Ox O2 Delivery O2 Flow Rate FiO2 09/06/19 11:05 98.7 87 102/67 (79) 98 Room Air 98.7 09/06/19 06:34 18 09/05/19 18:01 8.0 Intake and Output 09/06/19 07:00 # Voids 5 Physical Exam General: Alert, Oriented X3, Cooperative, No acute distress MUSCULOSKELETAL: Other ([place]) Neuro: Normal speech, Other (strength 5/5 in BLE) Skin: Other (dressing C,D,I, flat) Plan Plan of Care DC Home with HH F/U 2 Weeks Comment Review of Relevant I have reviewed the following items stefany (where applicable) has been applied. Medications Current Medications Ondansetron HCl (Zofran) 4 mg PRN Q6HRS PRN IV NAUSEA/VOMITING; Start 09/02/19 at 07:00; Stop 09/03/19 at 06:59; Status DC Fentanyl Citrate (Fentanyl 2ml Vial) 25 mcg PRN Q5MIN PRN IV MILD PAIN 1-3; Start 09/02/19 at 07:00; Stop 09/02/19 at 19:00; Status DC Fentanyl Citrate (Fentanyl 2ml Vial) 50 mcg PRN Q5MIN PRN IV MODERATE TO SEVERE PAIN; Start 09/02/19 at 07:00; Stop 09/02/19 at 19:00; Status DC Morphine Sulfate (Morphine Sulfate) 1 mg PRN Q10MIN PRN IV SEVERE PAIN 7-10; Start 09/02/19 at 07:00; Stop 09/03/19 at 06:59; Status DC Ringer's Solution 1,000 ml @ 30 mls/hr Q24H IV Last administered on 09/02/19at 11:45; Start 09/02/19 at 07:00; Stop 09/02/19 at 18:59; Status DC Lidocaine HCl (Xylocaine-Mpf 1% 2ml Vial) 2 ml PRN 1X PRN ID PRIOR TO IV START; Start 09/02/19 at 07:00; Stop 09/02/19 at 19:00; Status DC Hydromorphone HCl (Dilaudid) 0.5 mg PRN Q10MIN PRN IV SEV PAIN, Second choice; Start 09/02/19 at 07:00; Stop 09/02/19 at 19:00; Status DC Prochlorperazine Edisylate (Compazine) 5 mg PACU PRN PRN IV NAUSEA, MRX1; Start 09/02/19 at 07:00; Stop 09/02/19 at 19:00; Status DC Bacitracin 05312 unit/Sodium Chloride 1,000 ml @ 1,000 mls/hr 1X ONCE IRR Last administered on 09/02/19 10:31; Start 09/02/19 at 06:00; Stop 09/02/19 at 06:59; Status DC Bupivacaine HCl/ Epinephrine Bitart (Sensorcain-Epi 0.5%-1:[id number] Mpf) 30 ml 1X ONCE INJ Last administered on 09/02/19 10:31; Start 09/02/19 at 08:00; Stop 09/02/19 at 08:01; Status DC Cefazolin Sodium/ Dextrose 50 ml @ 100 mls/hr 1X PREOP PRN IV PRIOR TO PROCEDURE Last administered on 09/02/19 14:02; Start 09/02/19 at 06:00; Stop 09/02/19 at 18:00; Status DC Gelatin (Gelfoam Size 100) 1 each STK-MED ONCE .ROUTE Last administered on 09/02/19 10:31; Start 09/02/19 at 07:18; Stop 09/02/19 at 07:19; Status DC Ketorolac Tromethamine (Toradol Im) 60 mg STK-MED ONCE .ROUTE Last administered on 09/02/19 10:31; Start 09/02/19 at 07:18; Stop 09/02/19 at 07:19; Status DC Thrombin 20,000 unit STK-MED ONCE TP Last administered on 09/02/19 10:31; Start 09/02/19 at 07:18; Stop 09/02/19 at 07:19; Status DC Propofol 100 ml @ As Directed STK-MED ONCE IV ; Start 09/02/19 at 07:55; Stop 09/02/19 at 07:56; Status DC Desflurane (Suprane) 90 ml STK-MED ONCE IH ; Start 09/02/19 at 08:06; Stop 09/02/19 at 08:06; Status DC Midazolam HCl (Versed) 2 mg STK-MED ONCE .ROUTE ; Start 09/02/19 at 08:06; Stop 09/02/19 at 08:06; Status DC Remifentanil HCl (Ultiva) 2 mg STK-MED ONCE IV ; Start 09/02/19 at 08:06; Stop 09/02/19 at 08:07; Status DC Fentanyl Citrate (Fentanyl 2ml Vial) 100 mcg STK-MED ONCE .ROUTE ; Start 09/02/19 at 08:06; Stop 09/02/19 at 08:07; Status DC Rocuronium [place] (Zemuron) 50 mg STK-MED ONCE .ROUTE ; Start 09/02/19 at 08:07; Stop 09/02/19 at 08:07; Status DC Phenylephrine HCl (Ayad-Synephrine Inj) 10 mg STK-MED ONCE .ROUTE ; Start 09/02/19 at 08:07; Stop 09/02/19 at 08:07; Status DC Dexamethasone Sodium Phosphate (Decadron) 20 mg STK-MED ONCE .ROUTE ; Start 09/02/19 at 08:07; Stop 09/02/19 at 08:07; Status DC Ondansetron HCl (Zofran) 4 mg STK-MED ONCE .ROUTE ; Start 09/02/19 at 08:07; Stop 09/02/19 at 08:07; Status DC Glycopyrrolate (Robinul) 1 mg STK-MED ONCE .ROUTE ; Start 09/02/19 at 10:18; Stop 09/02/19 at 10:19; Status DC Vasopressin (Vasostrict) 20 unit STK-MED ONCE .ROUTE ; Start 09/02/19 at 12:06; Stop 09/02/19 at 12:06; Status DC Phenylephrine HCl (Ayad-Synephrine Inj) 10 mg STK-MED ONCE .ROUTE ; Start at 12:33; Stop 09/02/19 at 12:33; Status DC Clindamycin Phosphate 50 ml @ 100 mls/hr 1X ONCE IV ; Start 09/02/19 at 13:00; Stop 09/02/19 at 13:29; Status UNV Ephedrine Sulfate (ePHEDrine PF IN SALINE SYRINGE) 50 mg STK-MED ONCE IV ; Start 09/02/19 at 12:55; Stop 09/02/19 at 12:55; Status DC Remifentanil HCl (Ultiva) 1 mg STK-MED ONCE IV ; Start 09/02/19 at 13:42; Stop 09/02/19 at 13:42; Status DC Cetirizine HCl (ZyrTEC) 10 mg DAILY PRN PO ALLERGIES; Start 09/02/19 at 16:00 Ergocalciferol (Vitamin D2) 50,000 unit WEEKLY PO ; Start 09/09/19 at 09:00 Oxycodone/ Acetaminophen (Percocet 5/325) 1 tab PRN Q4HRS PRN PO MODERATE PAIN 4-6; Start 09/02/19 at 16:00; Stop 09/02/19 at 17:11; Status DC Non-Formulary Medication (Albuterol Sulfate (Ventolin Hfa Inhaler)) 2 puff Q4HRS INH ; Start 09/02/19 at 16:00; Status UNV Cyanocobalamin (Vitamin B-12) 1,000 mcg DAILY PO Last administered on 09/06/19at 08:45; Start 09/03/19 at 09:00 Losartan Potassium (Cozaar) 50 mg DAILY PO ; Start 09/03/19 at 09:00 Fentanyl Citrate (Fentanyl 2ml Vial) 50 mcg PRN Q2HR PRN IVP PAIN Last administered on 09/03/19at 11:46; Start 09/02/19 at 16:00 Acetaminophen (Tylenol) 650 mg PRN Q6HRS PRN PO MILD PAIN / TEMP; Start 09/02/19 at 16:00 Al Hydroxide/Mg Hydroxide (Mylanta Plus Xs) 30 ml PRN Q3HRS PRN PO HEARTBURN / GAS; Start 09/02/19 at 16:00 Calcium Carbonate/ Glycine (Tums) 500 mg PRN Q3HRS PRN PO INDIGESTION; Start 09/02/19 at 16:00 Diphenhydramine HCl (Benadryl) 25 mg PRN Q6HRS PRN PO ITCHING; Start 09/02/19 at 16:00 Zolpidem Tartrate (Ambien) 5 mg PRN QHS PRN PO INSOMNIA, MAY REPEAT IN 1HR Last administered on 09/03/19at 21:11; Start 09/02/19 at 16:00 Naloxone HCl (Narcan) 0.1 mg PRN Q2MIN PRN IV ADMIN; Start 09/02/19 at 16:00 Sodium Chloride (Normal Saline Flush) 3 ml QSHIFT PRN IV AFTER MEDS AND BLOOD DRAWS; Start 09/02/19 at 16:00 Potassium Chloride/Dextrose/ Sod Cl 1,000 ml @ 75 mls/hr [id number] IV Last administered on 09/03/19at 05:38; Start 09/02/19 at 17:00; Stop 09/03/19 at 16:23; Status DC Oxycodone/ Acetaminophen (Percocet 5/325) 1 tab PRN Q4HRS PRN PO MILD PAIN, 1ST CHOICE Last administered on 09/06/19at 08:48; Start 09/02/19 at 16:00 Oxycodone/ Acetaminophen (Percocet 5/325) 2 tab PRN Q4HRS PRN PO SEVERE PAIN Last administered on 09/05/19at 07:59; Start 09/02/19 at 16:00 Docusate Sodium (Colace) 100 mg BID PO Last administered on 09/06/19at 08:45; Start 09/02/19 at 21:00 Magnesium Hydroxide (Milk Of Magnesia) 2,400 mg PRN Q12HR PRN PO CONSTIPATION Last administered on 09/06/19at 08:49; Start 09/02/19 at 16:00 Ondansetron HCl (Zofran) 4 mg PRN Q6HRS PRN IVP NAUESA, 1ST CHOICE; Start 09/02/19 at 16:00 Cefazolin Sodium (Ancef) 1 gm Q8H IVP Last administered on 09/03/19at 13:36; Start 09/02/19 at 22:00; Stop 09/03/19 at 14:01; Status DC Cyclobenzaprine HCl (Flexeril) 10 mg PRN Q8HRS PRN PO MUSCLE SPASMS Last administered on 09/03/19at 19:07; Start 09/02/19 at 16:00 Albuterol Sulfate (Ventolin Neb Soln) 2.5 mg Q4HRS W/A NEB Last administered on 09/06/19at 10:59; Start 09/02/19 at 18:00 Sodium Chloride 500 ml @ 500 mls/hr 1X ONCE IV Last administered on 09/04/19at 10:14; Start 09/04/19 at 10:15; Stop 09/04/19 at 11:14; Status DC Fluconazole (Diflucan) 150 mg 1X ONCE PO Last administered on 09/06/19at 10:31; Start 09/06/19 at 10:30; Stop 09/06/19 at 10:31; Status DC Active Scripts Active Percocet 5-325 Mg Tablet (Oxycodone/Acetaminophen) 1 Each Tablet 1 Tab PO PRN Q4HRS PRN Reported Cyclobenzaprine Hcl 5 Mg Tablet 5 Mg PO TID Losartan-Hctz 50-12.5 Mg Tab (Losartan/Hydrochlorothiazide) 1 Each Tablet 1 Tab PO DAILY Vitamin D2 (Ergocalciferol (Vitamin D2)) 50,000 Unit Capsule 1 Cap PO WEEKLY Zyrtec (Cetirizine Hcl) 10 Mg Tablet 1 Tab PO DAILY PRN Vitamin B12 (Cyanocobalamin (Vitamin B-12)) 2,500 Mcg Tab.chew 1,000 Mcg PO DAILY Ventolin Hfa Inhaler (Albuterol Sulfate) 18 Gm Hfa.aer.ad 2 Puff INH Q4HRS Vitals/I & O Vital Sign - Last 24 Hours 09/05/19 09/05/19 09/05/19 09/05/19 12:14 13:03 13:50 14:49 Temp 98.6 98.4 98.6 98.4 Pulse 92 91 Resp 16 16 B/P (MAP) 99/45 (63) 93/46 (62) Pulse Ox 100 100 100 100 O2 Delivery Room Air Room Air Room Air Room Air 09/05/19 09/05/19 09/05/19 09/05/19 17:45 17:49 18:01 18:35 Temp 98.4 98.4 98.4 98.4 Pulse 74 74 Resp 16 B/P (MAP) 109/52 (71) 109/52 (71) Pulse Ox 100 100 100 O2 Delivery Room Air Room Air Room Air Room Air O2 Flow Rate 8.0 09/05/19 09/05/19 09/05/19 09/06/19 20:15 21:57 22:44 03:00 Temp 98.8 98.8 Pulse 88 Resp 18 20 18 B/P (MAP) 97/61 (73) Pulse Ox 100 97 O2 Delivery Room Air Room Air Room Air Room Air 09/06/19 09/06/19 09/06/19 09/06/19 06:34 06:38 08:30 08:42 Temp 99.7 99.7 Pulse 83 96 Resp 18 B/P (MAP) 99/67 (78) 96/61 (73) Pulse Ox 95 98 O2 Delivery Room Air Room Air 09/06/19 09/06/19 09/06/19 09/06/19 08:45 08:48 11:00 11:05 Temp 98.7 98.7 Pulse 96 87 B/P (MAP) 96/61 102/67 (79) Pulse Ox 98 98 O2 Delivery Room Air Room Air Room Air MELISSA MONTIEL APRN Sep 06, 2019 12:12
--- NOTE | 2019-09-06 13:08 | SNU/HH DC ---
DISCHARGE WITH HOME HEALTH DISCHARGE INFORMATION: Discharge Date: Sep 06, 2019 Final Diagnosis: spondylolisthesis and pseudoarthrosis of lumbar spine Condition on Discharge: Stable CODE STATUS: Code Status: Full HOME HEALTH: Face to Face: I certify this patient is under my care and that I, or a nurse practitioner or physician's assistant food service manager working with me, had a face to face encounter that meets the physician face to face encounter requirements with this patient on []. RN For Eval/Treatment: Yes Physical Therapy For: Evalulation/Treatment Pt Meets Homebound Status: Limited distance walking POST DISCHARGE ORDERS: Activity Instructions for Disc: Activity as tolerated, Progressive ambulation Weight Bearing Status after Di: No restrictions Bathing Instructions: No Tub Bath until see DIET AFTER DISCHARGE: Regular Wound/Incision Care: Ice to area for comfort, Change dressing, May get incision wet Other wound/incision instructi: daily dressing change with 4 x 4 and tape FOLLOW-UP: Follow up with: Dr. Thompson in 2 weeks [phone] TREATMENT/EQUIPMENT ORDERS: Adaptive Equipment Issued: Brace/splint CERTIFICATION STATEMENT: Certification Statement: Certification Statement: Based on the above finding, I certify that this patient is confined to the home and needs intermittent chcf care, physical therapy and/or speech therapy, or continues to need occupational therapy.~ This patient is under my care, and I have initiated the establishment of the plan of care.~ This patient will be followed by myself or a community physician who will periodically review the plan of care. Home Meds Active Scripts Oxycodone/Apap 5-325 (PERCOCET 5-325 MG TABLET ) 1 Each Tablet, 1 TAB PO PRN Q4HRS PRN for MODERATE PAIN, #40 TAB Prov:BRUCE THOMPSON MD 01/15/19 Reported Medications Cyclobenzaprine Hcl (CYCLOBENZAPRINE HCL) 5 Mg Tablet, 5 MG PO TID, TAB 08/02/19 Losartan/Hydrochlorothiazide (LOSARTAN-HCTZ 50-12.5 MG TAB) 1 Each Tablet, 1 TAB PO DAILY for bp, #30 TAB 5 Refills 01/07/19 Ergocalciferol (Vitamin D2) (VITAMIN D2) 50,000 Unit Capsule, 1 CAP PO WEEKLY for vitamin, #4 CAP 5 Refills 01/07/19 Cetirizine Hcl (ZYRTEC) 10 Mg Tablet, 1 TAB PO DAILY PRN for ALLERGIES, #30 TAB 2 Refills 01/07/19 Cyanocobalamin (Vitamin B-12) (Vitamin B12) 2,500 Mcg Tab.chew, 1000 MCG PO DAILY for vitamin, TAB.CHEW 02/06/18 Albuterol Sulfate (VENTOLIN HFA INHALER) 18 Gm Hfa.aer.ad, 2 PUFF INH Q4HRS for FOR ASTHMA, INHALER 0 Refills 02/02/18 BRUCE THOMPSON MD Sep 06, 2019 13:08
[2019-09-06 15:22] VITALS: BP 98/67
--- NOTE | 2019-09-06 15:40 | NUR ---
Discharge instructions given with follow up to Dr. Cam in 2 weeks, see instructions sheets for details, awaiting transportation home, pre-medicated for transport
--- NOTE | 2019-09-06 15:52 | NUR ---
Discharged to home to home per w/c accompanied by significant other, belongings taken with her
[2019-09-09] MEDS ORDERED: ERGOCALCIFEROL (VITAMIN D2) 50,000 UNIT CAPSULE. PO SCH (09:00)
--- NOTE | 2019-09-09 18:36 | OP ---
DATE OF SURGERY: 09/02/2019 PREOPERATIVE DIAGNOSES: 1. Pseudoarthrosis, L3-L4. 2. Anterolisthesis on lumbar flexion and extension films at L5-S1 with severe back pain. OPERATIONS PERFORMED: Removal of hardware L3-L4, posterior instrumentation L3-L4 and L5-S1, posterolateral fusion L3 through the sacrum. I used [employer] hardware. MATERIAL CLERK: ALEXANDRIA Hampton, assisted with placement of hardware as well as closure. The operation also used multimodality monitoring including stimulated EMG monitoring, fluoroscopy, BrainLAB guidance. OPERATIVE INDICATIONS: The patient in the past has undergone an instrumented fusion at L3-L4. Initially, she did well, but then she developed increasing lower back pain. On imaging studies, was seen to have a nonunion at L3-L4. In addition, prior to her previous surgery, there was no motion at L5-S1 and on reimaging now, she does move significantly at L5-S1. On flexion and extension views, my feeling was that she was developing further degenerative changes with her lumbar spine and that in addition to re-augmenting the fusion at L3-L4, she would need to be fused L3 to sacrum with posterolateral fusion. She understood the surgery and the risks and technique. She understood the postoperative course and she wished to go ahead. DESCRIPTION OF PROCEDURE: Under general endotracheal anesthesia, the patient was positioned prone on the Iain table. Lumbar region prepped and draped in the standard fashion. KEKE hose and AV impulse boots were applied for DVT prophylaxis. A microscope was draped. Fluoroscopy was draped and brought into the field. Monitoring was established. Ancef 2 g was given less than 1 hour prior to initiation of surgery. Using fluoroscopic guidance, a midline incision was made extending from L3-S1. I dissected down through the skin and subcutaneous tissue, reflected the paraspinal muscles, placing self-retaining retractors. I brought in the removal set and removed the hardware at L3-L4 bilaterally without difficulty. I then worked down and went through the scar and exposed the bone of the previous fusion as well as the pedicles of L3 and L4. I moved down and visualized the transverse processes of L3 and L4. I then followed further inferiorly exposing the pedicles as well as the spinous processes of L4, L5 down through S1 bilaterally. I did have self-retaining retractors placed at this point. Using anatomic landmarks as well as BrainLAB guidance, I drilled into the posterior aspect of the pedicles of L5 and S1 bilaterally and tapped these openings. I then excoriated the bone of the transverse processes of L3, L4, and L5 and also the posterolateral aspect of S1. I did aspirate 15 mL of bone marrow, which I mixed with allograft bone, which was then packed into lateral gutters of L3, L4, L5, and S1 after the excoriation. This was done bilaterally. During this time, I tapped and selected larger sizes of the screws for L3 and L4 bilaterally. These were placed and then I placed the additional screws in L5 and S1. Using the Bendini system, I placed rods bilaterally without significant difficulty. I placed the nuts and torqued the system sequentially. After I had an excellent purchase, fitted with the hardware, I irrigated copiously and lumbar images looked good. I irrigated copiously and closed the wound in layers with absorbable suture and the skin was closed with 4-0 subcuticular stitch. I was quite pleased with the surgery. BRUCE THOMPSON MD DR: ADITHYA/aniyah JOB#: [id number] / [id number]
== END 2019-09-06 15:55 | disposition home health service (06) | DRG 460 ==
LOC: OPSVCIP 06:12 → 4 NORTH 17:05 → 4 SOUTHEST 09-03 11:27
PROVIDERS: ADMIT Neurological Surgery; ATTEND Neurological Surgery
PROC: 0SP004Z Removal of Internal Fixation Device from Lumbar Vertebral Joint, Open Approach (ICD-10-PCS; 2019-09-02)
PROC: 4A11X4G Monitoring of Peripheral Nervous Electrical Activity, Intraoperative, External Approach (ICD-10-PCS; 2019-09-02)
PROC: 0SG30KJ Fusion of Lumbosacral Joint with Nonautologous Tissue Substitute, Posterior Approach, Anterior Column, Open Approach (ICD-10-PCS; principal; 2019-09-02 08:30)
DX: M43.16 Spondylolisthesis, lumbar region (principal); M96.0 Pseudarthrosis after fusion or arthrodesis; J45.909 Unspecified asthma, uncomplicated; Y83.8 Other surgical procedures as the cause of abnormal reaction of the patient, or of later complication, without mention of misadventure at the time of the procedure; Z98.1 Arthrodesis status; G43.909 Migraine, unspecified, not intractable, without status migrainosus
CPT/HCPCS: 36415; 72131; 86850; 86900; 86901; 94640; 94760; A4314; A7015; C1713; J0171; J0690; J0696; J1100; J1885; J2250; J2405; J2704; J3010; J3490; J7030; J7040; J7120; J7613; 97110; 97116; 97530; G0378

== ENCOUNTER → 2019-11-26 | Outpatient (CLI) | payer BC ==
[~2019-11-26] MED LIST changes: -BACITRACIN 50,000 UNIT in IV NORMAL SALINE 1000ML BAG 1,000 ML IRR ONE; -CETI10TA22 PO; +CETI10TA24 PO; +CYCL10TA2 PO; +DOCU-153 PO
--- NOTE | 2019-11-26 13:28 | RAD ---
EXAM: Lumbar spine, 3 views. HISTORY: Lumbar fusion. COMPARISON: 09/02/2019 FINDINGS: 3 views of the lumbar spine are obtained. There is instrumented posterior spinal fusion at L3-S1. The instrumentation consists of paired transverse screws bridged by vertical rods. There is grade 1 anterolisthesis at the fused levels. There is disc space narrowing and endplate remodeling predominantly at L5-S1. There is mild lumbar dextroscoliosis centered at L3. IMPRESSION: 1. Instrumented fusion at L3-S1. There is grade 1 anterolisthesis at all fused levels and degenerative change primarily at L5-S1. 2. Mild lumbar scoliosis. Electronically signed by: Klaudia Ambrocio MD (11/26/2019 1:25 PM) [id number]
== END | disposition home or self-care (01) ==
LOC: RAD 10:10
PROVIDERS: ATTEND Neurological Surgery
DX: M47.817 Spondylosis without myelopathy or radiculopathy, lumbosacral region (principal); M41.86 Other forms of scoliosis, lumbar region; M48.07 Spinal stenosis, lumbosacral region; M43.26 Fusion of spine, lumbar region
CPT/HCPCS: 72100

== ENCOUNTER → 2020-01-30 | Outpatient (CLI) | payer BC ==
--- NOTE | 2020-01-30 12:40 | RAD ---
EXAM: Lumbar spine, 3 views. HISTORY: Fusion. COMPARISON: 11/26/2019 FINDINGS: 3 views of the lumbar spine are obtained. There is instrumented posterior spinal fusion at L3-S1. The S1 screws are fractured. There is grade 1 anterolisthesis of and L3 on L4, L4 and L5 and L5 on S1. There is mild endplate remodeling and facet arthropathy at multiple levels. There is disc space narrowing at L5-S1. There is S-shaped thoracolumbar scoliosis. There is a right pars defect at the lumbosacral junction. IMPRESSION: 1. Instrumented fusion at L3-S1. The S1 screws are fractured, new compared to the prior exam. 2. Grade 1 anterolisthesis at the fused levels, not appreciably changed compared to the prior study. 3. Multilevel degenerative change, primarily at the lumbosacral junction. 4. Thoracolumbar scoliosis. Electronically signed by: Klaudia Ambrocio MD (01/30/2020 12:37 PM) [id number]
== END ==
LOC: RAD 10:40
PROVIDERS: ATTEND Neurological Surgery
DX: M48.07 Spinal stenosis, lumbosacral region (principal); M41.85 Other forms of scoliosis, thoracolumbar region; Z98.1 Arthrodesis status
CPT/HCPCS: 72100